=== PATIENT | female | born 1960 | race Caucasian/White ===

== ENCOUNTER 2018-05-21 06:57 | Emergency (ER) | payer OTHER ==
[~2018-05-21] VITALS: Ht 165.1 cm; Wt 94.5 kg
[2018-05-21 07:01] VITALS: BP 203/112
[2018-05-21 07:49] LABS: BASOPHILS % (AUTO) 0.5 % (0-1); EOSINOPHILS # (AUTO) 0.1 X10'3 (0-0.9); EOSINOPHILS % (AUTO) 2.2 % (0-6); HEMATOCRIT 50.9 % (35.0-45.0); HEMOGLOBIN 16.9 g/dl (12.0-16.0); LYMPHOCYTES # (AUTO) 1.3 X10'3 (1.1-4.8); MEAN CORPUSCULAR HEMOGLOBIN 29.1 PG (27.0-31.0); MEAN CORPUSCULAR HGB CONC 33.2 g/dL (33.0-36.5); MEAN CORPUSCULAR VOLUME 87.6 FL (78-98); MEAN PLATELET VOLUME 8.4 FL (7.4-10.4); MONOCYTES # (AUTO) 0.3 X10'3 (0-0.9); MONOCYTES % (AUTO) 7.7 % (2-12); NEUTROPHILS # (AUTO) 2.7 X10'3 (1.8-7.7); NEUTROPHILS % (AUTO) 60.6 % (42-75); PLATELET COUNT 239 X10'3 (140-440); RED BLOOD COUNT 5.82 X10'6 (4.20-5.60); WHITE BLOOD COUNT 4.4 X10'3 (4.5-11.0)
[2018-05-21 08:02] LABS: CLARITY,URINE CLEAR (Clear); COLOR,URINE STRAW (Yellow); GLUCOSE, URINE NEGATIVE (Neg); KETONES,URINE NEGATIVE (Neg); LEUKOCYTE ESTERASE ,URINE NEGATIVE (Neg); NITRITES, URINE NEGATIVE (Neg); OCCULT BLOOD,URINE NEGATIVE (Neg); PH,URINE 7.5 (4.8-8.0); PROTEIN,URINE NEGATIVE (Neg); UROBILINOGEN,URINE 0.2 E.U/dL (0.2-1.0)
[2018-05-21 08:03] LABS: ALANINE AMINOTRANSFERASE 29 U/L (12-78); ALBUMIN 4.1 G/DL (3.4-5.0); ALBUMIN/GLOBULIN RATIO 1.1 (1.1-1.5); ALKALINE PHOSPHATASE 92 IU/L (46-116); ANION GAP 11 (8-16); ASPARTATE AMINO TRANSFERASE 35 U/L (10-37); BILIRUBIN,TOTAL 0.5 MG/DL (0.1-1.0); BLOOD UREA NITROGEN 16 MG/DL (7-18); BUN/CREATININE RATIO 18.8 (6.6-38.0); CALCIUM 9.6 MG/DL (8.5-10.1); CHLORIDE 104 MMOL/L (99-107); CREATININE 0.85 MG/DL (0.40-0.90); GLUCOSE 104 MG/DL (70-104); MAGNESIUM 2.1 MG/DL (1.5-2.4); SODIUM 142 MMOL/L (135-145); TOTAL CARBON DIOXIDE 27.4 MMOL/L (24-32); TOTAL PROTEIN 7.8 G/DL (6.4-8.2); eGFR 69 ML/MIN
[2018-05-21 08:10] LABS: UA COLLECTION TYPE CLN CATCH MIDSTREAM
[2018-05-21 08:13] LABS: URINE AMPHETAMINE SCREEN NEGATIVE (Neg); URINE BARBITUATE SCREEN NEGATIVE (Neg); URINE BENZODIAZEPINES SCREEN NEGATIVE (Neg); URINE CANNABINOID SCREEN NEGATIVE (Neg); URINE COCAINE SCREEN NEGATIVE (Neg); URINE METHADONE SCREEN NEGATIVE (Neg); URINE OPIATE SCREEN NEGATIVE (Neg); URINE PHENCYCLIDINE SCREEN NEGATIVE (Neg)
[2018-05-21 08:31] LABS: PARTIAL THROMBOPLASTIN TIME 27 SECONDS (22-32)
== END 2018-05-21 09:01 | disposition home or self-care (01) ==
LOC: ER 06:58
DX: I10 Essential (primary) hypertension (principal); R06.02 Shortness of breath; R20.2 Paresthesia of skin; R07.9 Chest pain, unspecified; R53.1 Weakness; J44.9 Chronic obstructive pulmonary disease, unspecified; F17.200 Nicotine dependence, unspecified, uncomplicated; Z90.710 Acquired absence of both cervix and uterus; Z98.890 Other specified postprocedural states
CPT/HCPCS: 36415; 71045; 80053; 80305; 81003; 83735; 84484; 85025; 85610; 85730; 93005; 99284

== ENCOUNTER 2021-07-19 10:10 | Inpatient (IN) | payer OTHER ==
[~2021-07-19] VITALS: Ht 165.1 cm; Wt 101.3 kg
[2021-07-19 10:53] LABS: BASOPHILS % (AUTO) 0.2 % (0-1); EOSINOPHILS % (AUTO) 0.3 % (0-6); HEMATOCRIT 46.4 % (35.0-45.0); HEMOGLOBIN 15.4 g/dl (12.0-16.0); LYMPHOCYTES # (AUTO) 0.3 X10'3 (1.1-4.8); LYMPHOCYTES % (AUTO) 3.1 % (21-51); MEAN CORPUSCULAR HGB CONC 33.2 g/dL (33.0-36.5); MEAN CORPUSCULAR VOLUME 87.2 FL (78-98); MEAN PLATELET VOLUME 9.1 FL (7.4-10.4); MONOCYTES # (AUTO) 0.3 X10'3 (0-0.9); MONOCYTES % (AUTO) 3.1 % (2-12); NEUTROPHILS # (AUTO) 8.3 X10'3 (1.8-7.7); NEUTROPHILS % (AUTO) 93.3 % (42-75); PLATELET COUNT 188 X10'3 (140-440); RED BLOOD COUNT 5.32 X10'6 (4.20-5.60); RED CELL DISTRIBUTION WIDTH 14.3 % (11.5-14.5); WHITE BLOOD COUNT 8.9 X10'3 (4.5-11.0)
[2021-07-19] MEDS ORDERED: normal saline 1000ML IV soln IV ONE (10:55)
[2021-07-19 11:10] LABS: ALANINE AMINOTRANSFERASE 15 U/L (12-78); ALBUMIN 2.7 G/DL (3.4-5.0); ALBUMIN/GLOBULIN RATIO 0.6 (1.1-1.5); ALKALINE PHOSPHATASE 101 IU/L (46-116); ANION GAP 13 (8-16); ASPARTATE AMINO TRANSFERASE 19 U/L (10-37); BILIRUBIN,TOTAL 0.5 MG/DL (0.1-1.0); BLOOD UREA NITROGEN 62 MG/DL (7-18); BUN/CREATININE RATIO 22.5 (6.6-38.0); CALCIUM 9.1 MG/DL (8.5-10.1); CHLORIDE 95 MMOL/L (99-107); CREATININE 2.76 MG/DL (0.40-0.90); GLUCOSE 107 MG/DL (70-104); POTASSIUM 4.2 MMOL/L (3.5-5.1); SODIUM 134 MMOL/L (135-145); TOTAL CARBON DIOXIDE 25.7 MMOL/L (24-32); TOTAL PROTEIN 7.2 G/DL (6.4-8.2); eGFR 18 ML/MIN
[2021-07-19] MEDS ORDERED: ipratropium/albuterol 3ml nebule NEB PRN ×2 (11:10→20:30)
[2021-07-19] MEDS ORDERED: levoFLOXACIN-Levaquin 500mg/D5 100 ML IV SCH (11:15)
[2021-07-19 11:16] LABS: D-DIMER 2.41 MG/L FEU (0-0.50)
[2021-07-19 11:20] LABS: MAGNESIUM 1.9 MG/DL (1.5-2.4)
[2021-07-19] MEDS ORDERED: levoFLOXACIN-Levaquin 500mg/D5 100 ML IV ONE (11:37)
[2021-07-19] MEDS ORDERED: vancomycin inj 500 MG in normal saline 100ml IV soln 100 ML IV ONE (12:00)
[2021-07-19 12:01] LABS: PLATELET ESTIMATE NORMAL; TOTAL CELLS COUNTED 100
[2021-07-19] MEDS ORDERED: HYDROcodone/acetaminophen 5mg/325mg tablet PO PRN (12:30)
[2021-07-19] MEDS ORDERED: potassium CL 10mEq/100ml bag 100 ML IV PRN (12:30)
[2021-07-19] MEDS ORDERED: magnesium 2GM in 50ml NS 50 ML IV PRN (12:30)
[2021-07-19] MEDS ORDERED: magnesium 4gm in 100ml NS 100 ML IV PRN (12:30)
[2021-07-19] MEDS ORDERED: acetaminophen 325mg tablet PO PRN (12:30)
[2021-07-19] MEDS ORDERED: magnesium Cl slow-release 64mg tablet PO PRN (12:30)
[2021-07-19] MEDS ORDERED: acetaminophen 650mg rectal suppository RC PRN (12:30)
[2021-07-19] MEDS ORDERED: POTASSIUM BICARB 20meq eff tab 20 MEQ TABLET.EFF PO PRN ×2 (12:30)
[2021-07-19] MEDS ORDERED: ondansetron 4mg rapidly disintigrating tab PO PRN (12:30)
[2021-07-19] MEDS ORDERED: ALBU8.5H17 IH (12:42)
[2021-07-19] MEDS ORDERED: LOSA1TAB36 PO (12:42)
[2021-07-19 12:45] LABS: ABG BASE EXCESS -5.4 mmol/L (-2.0-2.0); ABG HCO3 20.5 mmol/L (22.0-26.0); ABG OXYGEN SATURATION 92.7 % (94-97); ABG PCO2 (T) 42.1 mmHg (32.0-45.0); ABG PO2 (T) 69.5 mmHg (75.0-100.0); ALLEN'S TEST POSITIVE; FCOHb 1.9 % (0.0-3.9); FLOW 4 L/min; FMetHb 0.2 % (0.0-1.5); FO2Hb 90.8 % (94-97); PATIENT TEMPERATURE 37.2; TOTAL HEMOGLOBIN 14.8 G/dl (12.0-16.0)
[2021-07-19] MEDS: normal saline 1000ml 1,000 ML IV SCH (13:07)
[2021-07-19] MEDS: nicotine 14mg patch - 24hr TD SCH (13:25)
[2021-07-19 13:50] LABS: CLARITY,URINE CLOUDY (Clear); COLOR,URINE YELLOW (Yellow); GLUCOSE, URINE NEGATIVE (Neg); KETONES,URINE NEGATIVE (Neg); LEUKOCYTE ESTERASE ,URINE NEGATIVE (Neg); NITRITES, URINE NEGATIVE (Neg); OCCULT BLOOD,URINE TRACE-INTACT (Neg); PROTEIN,URINE 30 mg/dl (Neg); UROBILINOGEN,URINE 0.2 E.U/dL (0.2-1.0)
[2021-07-19] MEDS ORDERED: MULT-1085 PO (13:55)
[2021-07-19 13:57] LABS: UA COLLECTION TYPE NON-SPECIFIED
[2021-07-19 13:58] LABS: SQUAMOUS EPITHELIAL CELL,UR MANY /LPF (FEW)
[2021-07-19 13:59] LABS: RENAL CELLS, URINE FEW /HPF; TRANSITIONAL EPI CELLS,URINE FEW /HPF; WBC,URINE 50-100 /HPF (0-4)
[2021-07-19 14:00] LABS: BACTERIA,URINE 2+ /HPF (Neg); MUCUS STRANDS NONE SEEN /LPF (Neg); RBC,URINE 0-2 /HPF (0-2)
[2021-07-19 14:04] LABS: TOTAL PROTEIN,URINE RANDOM 91.9 MG/DL
[2021-07-19] MEDS: HYDROcodone/acetaminophen 10/325mg tab PO PRN (14:31)
[2021-07-19] MEDS: ondansetron/PF 4mg/2ml inj IV PRN (14:39)
[2021-07-19] MEDS: morphine 2 MG/ML inj. syringe IV PRN ×2 (14:39→21:04)
[2021-07-19 15:15] LABS: UA EOSINOPHILS NO EOS /HPF
[2021-07-19] MEDS: ipratropium/albuterol 3ml nebule NEB SCH ×3 (15:35→22:56)
[2021-07-19] MEDS: docusate sod 100mg capsule PO SCH (20:00)
[2021-07-19] MEDS ORDERED: piperacillin/tazo 4.5gm/100ml 100 ML IV SCH (20:00)
--- NOTE | 2021-07-19 20:23 | NUR ---
Hospitalist paged regarding elevated HR, oxygenation status and low BP. Awaiting response.
--- NOTE | 2021-07-19 20:28 | NUR ---
Hospitalist called ED and gave verbal orders for 40 mg Lasix IV Now and q4hr nebulizer treatments via respiratory.
[2021-07-19] MEDS ORDERED: furosemide 10 MG/1 ML 10ml inj IV ONE (20:30)
--- NOTE | 2021-07-19 20:38 | NUR ---
Paged hospitalist to come look at Pt. Pt exhibiting increased RR, HR, mottling, delayed cap refill, and shallow breathing.
--- NOTE | 2021-07-19 20:43 | NUR ---
Hospitalist called and gave verbal orders for chest xray, ABG, and stated she would be down to see patient soon
--- NOTE | 2021-07-19 20:58 | NUR ---
Hospitalist at bedside
[2021-07-19] MEDS ORDERED: morphine 2 MG/ML inj. syringe IV PRN ×2 (21:00)
[2021-07-19] MEDS ORDERED: temazepam 15mg capsule PO PRN (21:00)
[2021-07-19 21:08] LABS: ABG HCO3 23.7 mmol/L (22.0-26.0); ABG OXYGEN SATURATION 93.5 % (94-97); ABG PCO2 (T) 64.4 mmHg (32.0-45.0); FCOHb 0.9 % (0.0-3.9); FMetHb 0.3 % (0.0-1.5); FO2Hb 92.4 % (94-97); PATIENT TEMPERATURE 39.3; TOTAL HEMOGLOBIN 15.9 G/dl (12.0-16.0)
[2021-07-19] MEDS ORDERED: LIDOcaine 2% 10ml TOPICAL JELLY (Urojet) TP ONE (21:10)
--- NOTE | 2021-07-19 21:11 | NUR ---
ABG results back. Hospitalist notified and ordered Bipap. RT on route.
--- NOTE | 2021-07-19 21:15 | NUR ---
RT at bedside initiating BiPap
--- NOTE | 2021-07-19 21:28 | NUR ---
Pt started on Bipap. Pt resting more comfortably and appears less anxious. HR has decreased to 125
--- NOTE | 2021-07-19 22:31 | NUR ---
Received call from lab regarding positive aerobic blood cultures. Hospitalist paged.
--- NOTE | 2021-07-19 23:51 | NUR ---
Spoke to hospitalist regarding plan of care. Hospitalist plans to admit patient to Tele unit.
[2021-07-19] MEDS: K and/or MAG REPLACEMENT MC SCH (23:55)
[2021-07-20] MEDS: heparin, porcine 5000 units/ml vial SQ SCH ×3 (00:22→20:05)
[2021-07-20 00:41] LABS: ABG BASE EXCESS -4.5 mmol/L (-2.0-2.0); ABG HCO3 22.7 mmol/L (22.0-26.0); ABG OXYGEN SATURATION 96.5 % (94-97); ABG PO2 (T) 98.2 mmHg (75.0-100.0); FCOHb 0.2 % (0.0-3.9); FMetHb 0.4 % (0.0-1.5); FO2Hb 95.9 % (94-97); PATIENT TEMPERATURE 38.1; RESPIRATORY RATE 16 b/min; TOTAL HEMOGLOBIN 15.1 G/dl (12.0-16.0)
[2021-07-20 02:45] LABS: BASOPHILS % (AUTO) 0.1 % (0-1); EOSINOPHILS % (AUTO) 0.2 % (0-6); HEMATOCRIT 43.5 % (35.0-45.0); HEMOGLOBIN 14.5 g/dl (12.0-16.0); LYMPHOCYTES # (AUTO) 0.2 X10'3 (1.1-4.8); LYMPHOCYTES % (AUTO) 2.8 % (21-51); MEAN CORPUSCULAR HEMOGLOBIN 29.2 PG (27.0-31.0); MEAN CORPUSCULAR HGB CONC 33.3 g/dL (33.0-36.5); MEAN CORPUSCULAR VOLUME 87.8 FL (78-98); MEAN PLATELET VOLUME 9.6 FL (7.4-10.4); MONOCYTES # (AUTO) 0.3 X10'3 (0-0.9); MONOCYTES % (AUTO) 5.1 % (2-12); NEUTROPHILS # (AUTO) 6.1 X10'3 (1.8-7.7); NEUTROPHILS % (AUTO) 91.8 % (42-75); PLATELET COUNT 171 X10'3 (140-440); RED BLOOD COUNT 4.95 X10'6 (4.20-5.60); RED CELL DISTRIBUTION WIDTH 14.3 % (11.5-14.5); WHITE BLOOD COUNT 6.7 X10'3 (4.5-11.0)
--- NOTE | 2021-07-20 02:52 | NUR ---
RN brought patient water. Pt is much more alert and organized than prior in the shift. She is able to answer questions and states she feels much less anxious.
[2021-07-20 02:55] LABS: ALANINE AMINOTRANSFERASE 17 U/L (12-78); ALBUMIN 2.2 G/DL (3.4-5.0); ALBUMIN/GLOBULIN RATIO 0.5 (1.1-1.5); ALKALINE PHOSPHATASE 89 IU/L (46-116); ANION GAP 12 (8-16); ASPARTATE AMINO TRANSFERASE 19 U/L (10-37); BILIRUBIN,TOTAL 0.7 MG/DL (0.1-1.0); BLOOD UREA NITROGEN 62 MG/DL (7-18); BUN/CREATININE RATIO 29.5 (6.6-38.0); CALCIUM 8.2 MG/DL (8.5-10.1); CHLORIDE 102 MMOL/L (99-107); CHOL/HDL RATIO 12.7 (0.00-4.99); CHOLESTEROL 127 MG/DL (0-200); GLUCOSE 107 MG/DL (70-104); HDL CHOLESTEROL 10 MG/DL (35-60); LDL CHOLESTEROL 38 MG/DL (50-100); MAGNESIUM 1.9 MG/DL (1.5-2.4); POTASSIUM 3.8 MMOL/L (3.5-5.1); SODIUM 138 MMOL/L (135-145); TOTAL CARBON DIOXIDE 23.6 MMOL/L (24-32); TOTAL PROTEIN 6.6 G/DL (6.4-8.2); TRIGLYCERIDES 198 MG/DL (20-135); eGFR 24 ML/MIN
[2021-07-20] MEDS: normal saline 1000ml 1,000 ML IV SCH ×4 (03:05→23:50)
--- NOTE | 2021-07-20 03:53 | NUR ---
Lab called to give critical value regarding pt blood cultures. Organism results are the same as previous blood cultures. MD was already notified of previous culture results.
[2021-07-20] MEDS: ondansetron/PF 4mg/2ml inj IV PRN (05:43)
[2021-07-20] MEDS: morphine 2 MG/ML inj. syringe IV PRN (05:44)
[2021-07-20 06:05] LABS: PLATELET ESTIMATE NORMAL; TOTAL CELLS COUNTED 100
[2021-07-20] MEDS: ipratropium/albuterol 3ml nebule NEB SCH ×5 (06:50→23:26)
[2021-07-20 08:00] VITALS: BP 102/68
[2021-07-20] MEDS ORDERED: azithromycin/NS 500mg/250ml 250 ML IV SCH (08:00)
[2021-07-20] MEDS ORDERED: cefTRIAXone 1g/NS 100ml IVPB 100 ML IV SCH (08:00)
[2021-07-20] MEDS: K and/or MAG REPLACEMENT MC SCH ×2 (08:00→20:00)
[2021-07-20] MEDS ORDERED: methylPREDNISolone sod succ 125mg/2ml vial IV ONE (09:40)
[2021-07-20] MEDS: docusate sod 100mg capsule PO SCH ×2 (09:41→20:00)
[2021-07-20] MEDS: multivitamins, therapeutics tablet PO SCH (09:41)
[2021-07-20] MEDS: nicotine 14mg patch - 24hr TD SCH (09:42)
[2021-07-20 11:00] VITALS: BP 100/63
[2021-07-20] MEDS: pantoprazole 40mg Tablet.DR PO SCH (13:11)
[2021-07-20] MEDS: methylPREDNISolone sod succ 125mg/2ml vial IV SCH ×2 (13:11→20:05)
[2021-07-20 14:09] LABS: HIV ANTIBODY 1&2 RAPID NON-REACTIVE (Neg)
[2021-07-20 15:00] VITALS: BP 99/64
--- NOTE | 2021-07-20 16:35 | NUR ---
PAGER ID: [phone] MESSAGE: Sumanth is lethargic. She is not very responsive her last ABG (pH 7.2363, CO2 52.4 SPO2 89) was at midnight do you want another? Still on Bipap. Her procalcitonin came back 35.98 Please advise. Lexi BRENNAN ext [phone]
[2021-07-20 16:54] LABS: ABG HCO3 24.5 mmol/L (22.0-26.0); ABG OXYGEN SATURATION 93.5 % (94-97); ABG PCO2 (T) 58.8 mmHg (32.0-45.0); ABG PO2 (T) 76.2 mmHg (75.0-100.0); ALLEN'S TEST POSITIVE; FCOHb 0.1 % (0.0-3.9); FMetHb 0.4 % (0.0-1.5); RESPIRATORY RATE 12 b/min; TOTAL HEMOGLOBIN 14.8 G/dl (12.0-16.0)
--- NOTE | 2021-07-20 17:01 | NUR ---
PAGER ID: [phone] MESSAGE: [id number] Amish Riddle blood gas pH 7.237, CO2 58.8, PO2 76.2. Please advise Lexi BRENNAN ext [phone] Thank you
--- NOTE | 2021-07-20 18:20 | NUR ---
Problems reprioritized. Patient report given, questions answered & plan of care reviewed with ANU Quintanilla.
[2021-07-20] MEDS: acetaminophen 325mg tablet PO PRN (20:05)
[2021-07-20 22:00] VITALS: BP 93/65
[2021-07-21] MEDS: methylPREDNISolone sod succ 125mg/2ml vial IV SCH ×4 (01:39→19:39)
[2021-07-21 02:00] VITALS: BP 114/78
[2021-07-21 06:00] VITALS: BP 112/72
[2021-07-21 07:00] LABS: BASOPHILS % (AUTO) 0.1 % (0-1); EOSINOPHILS % (AUTO) 0.1 % (0-6); HEMATOCRIT 42.7 % (35.0-45.0); LYMPHOCYTES # (AUTO) 0.4 X10'3 (1.1-4.8); LYMPHOCYTES % (AUTO) 5.2 % (21-51); MEAN CORPUSCULAR HEMOGLOBIN 28.7 PG (27.0-31.0); MEAN CORPUSCULAR HGB CONC 32.9 g/dL (33.0-36.5); MEAN CORPUSCULAR VOLUME 87.3 FL (78-98); MEAN PLATELET VOLUME 9.1 FL (7.4-10.4); MONOCYTES # (AUTO) 0.6 X10'3 (0-0.9); MONOCYTES % (AUTO) 7.8 % (2-12); NEUTROPHILS # (AUTO) 6.4 X10'3 (1.8-7.7); NEUTROPHILS % (AUTO) 86.8 % (42-75); PLATELET COUNT 190 X10'3 (140-440); RED CELL DISTRIBUTION WIDTH 14.4 % (11.5-14.5); WHITE BLOOD COUNT 7.4 X10'3 (4.5-11.0)
[2021-07-21 07:09] LABS: ALANINE AMINOTRANSFERASE 17 U/L (12-78); ALBUMIN/GLOBULIN RATIO 0.4 (1.1-1.5); ALKALINE PHOSPHATASE 88 IU/L (46-116); ANION GAP 8 (8-16); ASPARTATE AMINO TRANSFERASE 16 U/L (10-37); BILIRUBIN,TOTAL 0.3 MG/DL (0.1-1.0); BLOOD UREA NITROGEN 51 MG/DL (7-18); BUN/CREATININE RATIO 38.1 (6.6-38.0); CALCIUM 9.1 MG/DL (8.5-10.1); CHLORIDE 104 MMOL/L (99-107); CREATININE 1.34 MG/DL (0.40-0.90); GLUCOSE 152 MG/DL (70-104); MAGNESIUM 2.5 MG/DL (1.5-2.4); POTASSIUM 3.7 MMOL/L (3.5-5.1); SODIUM 139 MMOL/L (135-145); TOTAL CARBON DIOXIDE 27.4 MMOL/L (24-32); TOTAL PROTEIN 6.7 G/DL (6.4-8.2); eGFR 40 ML/MIN
[2021-07-21 07:29] LABS: PLATELET ESTIMATE NORMAL; TOTAL CELLS COUNTED 100
[2021-07-21] MEDS: ipratropium/albuterol 3ml nebule NEB SCH ×5 (07:39→23:28)
[2021-07-21] MEDS: acetaminophen 325mg tablet PO PRN (07:57)
[2021-07-21] MEDS: CefTRIAXone 2gm/NS 100ml IVPB 100 ML IV SCH (07:58)
[2021-07-21] MEDS: K and/or MAG REPLACEMENT MC SCH ×2 (08:00→19:40)
[2021-07-21] MEDS: docusate sod 100mg capsule PO SCH ×2 (08:56→19:39)
[2021-07-21] MEDS: pantoprazole 40mg Tablet.DR PO SCH (08:56)
[2021-07-21] MEDS: multivitamins, therapeutics tablet PO SCH (08:57)
[2021-07-21] MEDS: heparin, porcine 5000 units/ml vial SQ SCH (08:57)
[2021-07-21] MEDS: nicotine 14mg patch - 24hr TD SCH (08:58)
[2021-07-21] MEDS ORDERED: PERFLUTREN PROTEIN-A MICROSPHR (Optison) 0.22 MG/ML 3ML VIAL IV ONE (09:10)
--- NOTE | 2021-07-21 09:48 | NUR ---
PAGER ID: [phone] MESSAGE: [id number] Venkatesh, Amish is having chest pain. did an ekg. the telephoto installer said she went into a fib. she reported chest pain 5/10. Is currently getting a echo too. Please advise Lexi BRENNAN [phone]
--- NOTE | 2021-07-21 09:57 | NUR ---
Patient reported chest pain 07/25. laboratory tech reported patient went into a fib at 0907. Per protocol ordered an ekg and paged hospitalist and took ekg to ED to have read in a time frame given by protocol. Dr. Gabriel refused to read ekg. He stated, "You did not follow protocol!" Awaiting Dr. Izquierdo's response at this time.
--- NOTE | 2021-07-21 10:31 | NUR ---
PAGER ID: [phone] MESSAGE: [id number] Amish Petersonx reported chest pain at 0930, telecommunication systems designer reported a fib at 0907, ordered a 12 lead, ED wouldn't read it, so I paged you, Current VS 128/84 (95), SpO2 91% on 6L NC R22 Pain 06/25. Keeping you updated. Thanks Lexi BRENNAN [phone]
[2021-07-21] MEDS: ibuprofen tablet 400 MG TABLET PO PRN (10:44)
[2021-07-21 11:00] VITALS: BP 114/73
[2021-07-21] MEDS: normal saline 1000ml 1,000 ML IV SCH ×2 (11:25→22:04)
[2021-07-21] MEDS ORDERED: diltiazem 5mg/ml 5ml inj. IV ONE (12:30)
[2021-07-21] MEDS: diltiazem-D5W 125mg/125ml 125 ML IV SCH (14:27)
[2021-07-21 15:00] VITALS: BP 107/73
[2021-07-21] MEDS: HYDROcodone/acetaminophen 10/325mg tab PO PRN (17:57)
[2021-07-21 18:00] VITALS: BP 93/59
[2021-07-21] MEDS: apixaban 5mg tablet PO SCH (19:39)
[2021-07-21 22:00] VITALS: BP 112/59
[2021-07-22] MEDS: methylPREDNISolone sod succ 125mg/2ml vial IV SCH ×3 (02:00→14:00)
[2021-07-22] MEDS: ibuprofen tablet 400 MG TABLET PO PRN (02:00)
[2021-07-22 06:00] VITALS: BP 115/83
[2021-07-22 06:54] LABS: BASOPHILS % (AUTO) 0.1 % (0-1); EOSINOPHILS % (AUTO) 0 % (0-6); HEMATOCRIT 44.5 % (35.0-45.0); HEMOGLOBIN 14.8 g/dl (12.0-16.0); LYMPHOCYTES # (AUTO) 0.4 X10'3 (1.1-4.8); LYMPHOCYTES % (AUTO) 5.6 % (21-51); MEAN CORPUSCULAR HEMOGLOBIN 29.5 PG (27.0-31.0); MEAN CORPUSCULAR HGB CONC 33.3 g/dL (33.0-36.5); MEAN CORPUSCULAR VOLUME 88.8 FL (78-98); MEAN PLATELET VOLUME 9.1 FL (7.4-10.4); MONOCYTES % (AUTO) 13.3 % (2-12); NEUTROPHILS # (AUTO) 6.3 X10'3 (1.8-7.7); PLATELET COUNT 179 X10'3 (140-440); RED BLOOD COUNT 5.02 X10'6 (4.20-5.60); WHITE BLOOD COUNT 7.8 X10'3 (4.5-11.0)
[2021-07-22 07:23] LABS: ALANINE AMINOTRANSFERASE 21 U/L (12-78); ALBUMIN 1.9 G/DL (3.4-5.0); ALBUMIN/GLOBULIN RATIO 0.4 (1.1-1.5); ALKALINE PHOSPHATASE 96 IU/L (46-116); ANION GAP 9 (8-16); ASPARTATE AMINO TRANSFERASE 16 U/L (10-37); BILIRUBIN,TOTAL 0.2 MG/DL (0.1-1.0); BLOOD UREA NITROGEN 45 MG/DL (7-18); BUN/CREATININE RATIO 43.7 (6.6-38.0); CALCIUM 9.6 MG/DL (8.5-10.1); CHLORIDE 106 MMOL/L (99-107); CREATININE 1.03 MG/DL (0.40-0.90); GLUCOSE 144 MG/DL (70-104); MAGNESIUM 2.2 MG/DL (1.5-2.4); POTASSIUM 4.3 MMOL/L (3.5-5.1); SODIUM 142 MMOL/L (135-145); TOTAL CARBON DIOXIDE 27.5 MMOL/L (24-32); TOTAL PROTEIN 6.7 G/DL (6.4-8.2); eGFR 55 ML/MIN
[2021-07-22 07:32] LABS: PLATELET ESTIMATE NORMAL; TOTAL CELLS COUNTED 100
[2021-07-22] MEDS: K and/or MAG REPLACEMENT MC SCH ×2 (08:00→20:00)
[2021-07-22] MEDS: ipratropium/albuterol 3ml nebule NEB SCH ×5 (08:06→23:35)
[2021-07-22] MEDS: nicotine 14mg patch - 24hr TD SCH (08:57)
[2021-07-22] MEDS: pantoprazole 40mg Tablet.DR PO SCH (08:57)
[2021-07-22] MEDS: CefTRIAXone 2gm/NS 100ml IVPB 100 ML IV SCH (08:57)
[2021-07-22] MEDS: multivitamins, therapeutics tablet PO SCH (08:57)
[2021-07-22] MEDS: docusate sod 100mg capsule PO SCH ×2 (08:57→20:00)
[2021-07-22] MEDS: HYDROcodone/acetaminophen 10/325mg tab PO PRN ×2 (08:57→22:46)
[2021-07-22] MEDS: apixaban 5mg tablet PO SCH (08:59)
[2021-07-22] MEDS: normal saline 1000ml 1,000 ML IV SCH ×2 (09:11→20:18)
[2021-07-22 11:00] VITALS: BP 125/93
[2021-07-22] MEDS ORDERED: magnesium hydroxide 30ml (MOM) UD suspension PO PRN (12:40)
[2021-07-22] MEDS: diltiazem-D5W 125mg/125ml 125 ML IV SCH (14:10)
[2021-07-22] MEDS: heparin, porcine 5000 units/ml vial SQ SCH (16:00)
[2021-07-22 18:00] VITALS: BP_SYST 113; BP_SYST 128; BP_DIAS 62; BP_DIAS 76
[2021-07-22] MEDS: diltiazem 30mg tablet PO SCH (19:59)
[2021-07-22 22:00] VITALS: BP 128/75
[2021-07-22] MEDS: psyllium seed 3.4 gm packet PO SCH (22:46)
--- NOTE | 2021-07-22 23:51 | NUR ---
Pt in RM 3028, Venkatesh Tammy K is scheduled for PO Cardizem Q6hrs. Pt still has active cardizem drip in the MAR. Would you want to D/C cardizem drip? Please advice. Thanks, Sharon/[phone] Head
--- NOTE | 2021-07-22 23:55 | NUR ---
New verbal order to D/C cardizem drip by Dr Garcia. Continue PO Cardizem per order. Dr Garcia was present on unit at this time.
[2021-07-23] MEDS: heparin, porcine 5000 units/ml vial SQ SCH ×3 (00:37→16:00)
[2021-07-23] MEDS: methylPREDNISolone sod succ 125mg/2ml vial IV SCH ×3 (00:38→16:00)
[2021-07-23 02:35] VITALS: BP 128/65
[2021-07-23] MEDS: diltiazem 30mg tablet PO SCH ×4 (02:37→19:57)
[2021-07-23 06:00] VITALS: BP 121/81
[2021-07-23 06:49] LABS: BASOPHILS % (AUTO) 0.1 % (0-1); EOSINOPHILS % (AUTO) 0.1 % (0-6); HEMATOCRIT 47.9 % (35.0-45.0); HEMOGLOBIN 15.8 g/dl (12.0-16.0); LYMPHOCYTES # (AUTO) 0.5 X10'3 (1.1-4.8); LYMPHOCYTES % (AUTO) 6.3 % (21-51); MEAN PLATELET VOLUME 8.5 FL (7.4-10.4); MONOCYTES # (AUTO) 0.8 X10'3 (0-0.9); MONOCYTES % (AUTO) 10.2 % (2-12); NEUTROPHILS # (AUTO) 6.3 X10'3 (1.8-7.7); NEUTROPHILS % (AUTO) 83.3 % (42-75); PLATELET COUNT 214 X10'3 (140-440); RED BLOOD COUNT 5.44 X10'6 (4.20-5.60); RED CELL DISTRIBUTION WIDTH 15.3 % (11.5-14.5); WHITE BLOOD COUNT 7.6 X10'3 (4.5-11.0)
--- NOTE | 2021-07-23 06:53 | NUR ---
Problems reprioritized. Patient report given, questions answered & plan of care reviewed with .
[2021-07-23 07:06] LABS: ALANINE AMINOTRANSFERASE 25 U/L (12-78); ALBUMIN 2.2 G/DL (3.4-5.0); ALBUMIN/GLOBULIN RATIO 0.4 (1.1-1.5); ALKALINE PHOSPHATASE 106 IU/L (46-116); ANION GAP 9 (8-16); ASPARTATE AMINO TRANSFERASE 16 U/L (10-37); BILIRUBIN,TOTAL 0.4 MG/DL (0.1-1.0); BLOOD UREA NITROGEN 37 MG/DL (7-18); BUN/CREATININE RATIO 45.1 (6.6-38.0); CALCIUM 9.9 MG/DL (8.5-10.1); CHLORIDE 107 MMOL/L (99-107); CREATININE 0.82 MG/DL (0.40-0.90); GLUCOSE 133 MG/DL (70-104); MAGNESIUM 2.2 MG/DL (1.5-2.4); POTASSIUM 4.8 MMOL/L (3.5-5.1); SODIUM 143 MMOL/L (135-145); TOTAL CARBON DIOXIDE 27.5 MMOL/L (24-32); TOTAL PROTEIN 7.4 G/DL (6.4-8.2); eGFR 71 ML/MIN
[2021-07-23 07:34] LABS: PLATELET ESTIMATE NORMAL; TOTAL CELLS COUNTED 100
[2021-07-23] MEDS: ipratropium/albuterol 3ml nebule NEB SCH ×5 (08:11→23:08)
[2021-07-23] MEDS: K and/or MAG REPLACEMENT MC SCH ×2 (08:21→20:00)
[2021-07-23] MEDS: normal saline 1000ml 1,000 ML IV SCH ×2 (09:10→18:32)
[2021-07-23] MEDS: HYDROcodone/acetaminophen 10/325mg tab PO PRN ×2 (09:19→14:06)
[2021-07-23] MEDS: nicotine 14mg patch - 24hr TD SCH (09:19)
[2021-07-23] MEDS: multivitamins, therapeutics tablet PO SCH (09:20)
[2021-07-23] MEDS: pantoprazole 40mg Tablet.DR PO SCH (09:20)
[2021-07-23] MEDS: docusate sod 100mg capsule PO SCH ×2 (09:26→19:59)
[2021-07-23] MEDS: CefTRIAXone 2gm/NS 100ml IVPB 100 ML IV SCH (09:26)
--- NOTE | 2021-07-23 10:16 | NUR ---
Initial: Pt admitted w/ Afib w/ RVR, sepsis, and PNA per EMR, on 7L HFNC. Currently on Heart healthy diet w/ avg intake 57% of meals partially meeting needs. Pt could benefit from Ensure High Protein TID to help meet nutrient needs. LBM 5/4 receiving routine bowel care. Will continue to monitor and make recommendations as appropriate. Recs: 1. Liberalize to Regular diet 2. Ensure High Protein TID; pending MD verification 3. Bowel care per rx 4. Scaled wts this admit Addendum: 07/23/21 at [address] Amended: Links added.
[2021-07-23] MEDS ORDERED: iohexol 350MG/ML 100ml bottle IV ONE (10:56)
[2021-07-23 11:00] VITALS: BP 123/93
[2021-07-23] MEDS: lactose-reduced food (Ensure High Protein) 237ml bottle PO SCH ×2 (13:02→13:59)
[2021-07-23 15:00] VITALS: BP 142/84
[2021-07-23 18:00] VITALS: BP 131/77
--- NOTE | 2021-07-23 18:52 | NUR ---
Pt in RM 3028/A, Venkatesh Munoz is asking for something for heart burn. Stated she takes Pepcid at home and it helps. Kindly advice, ric. Sharon/[phone]. Paged Dr Garcia.
[2021-07-23] MEDS ORDERED: famotidine 10mg tablet PO PRN (19:00)
[2021-07-23] MEDS: famotidine 20mg tablet PO PRN (21:22)
[2021-07-23] MEDS: psyllium seed 3.4 gm packet PO SCH (21:22)
[2021-07-24] MEDS: methylPREDNISolone sod succ 125mg/2ml vial IV SCH ×4 (01:03→23:50)
[2021-07-24] MEDS: heparin, porcine 5000 units/ml vial SQ SCH ×4 (01:04→23:49)
[2021-07-24 02:08] VITALS: BP 131/92
[2021-07-24] MEDS: diltiazem 30mg tablet PO SCH ×4 (02:11→20:57)
[2021-07-24] MEDS: acetaminophen 325mg tablet PO PRN ×2 (02:11→10:33)
[2021-07-24 05:50] LABS: HEMOGLOBIN 15.3 g/dl (12.0-16.0)
[2021-07-24 05:52] LABS: HEMATOCRIT 46.4 % (35.0-45.0); MEAN CORPUSCULAR HEMOGLOBIN 28.6 PG (27.0-31.0); MEAN CORPUSCULAR HGB CONC 32.9 g/dL (33.0-36.5); MEAN CORPUSCULAR VOLUME 86.7 FL (78-98); MEAN PLATELET VOLUME 8.5 FL (7.4-10.4); PLATELET COUNT 258 X10'3 (140-440); RED BLOOD COUNT 5.36 X10'6 (4.20-5.60); RED CELL DISTRIBUTION WIDTH 15.1 % (11.5-14.5); WHITE BLOOD COUNT 15.3 X10'3 (4.5-11.0)
[2021-07-24 06:00] VITALS: BP 125/75
[2021-07-24] MEDS: normal saline 1000ml 1,000 ML IV SCH (06:02)
[2021-07-24 06:22] LABS: ALANINE AMINOTRANSFERASE 30 U/L (12-78); ALBUMIN 2.2 G/DL (3.4-5.0); ALBUMIN/GLOBULIN RATIO 0.5 (1.1-1.5); ALKALINE PHOSPHATASE 100 IU/L (46-116); ANION GAP 5 (8-16); ASPARTATE AMINO TRANSFERASE 19 U/L (10-37); BILIRUBIN,TOTAL 0.3 MG/DL (0.1-1.0); BLOOD UREA NITROGEN 35 MG/DL (7-18); BUN/CREATININE RATIO 49.3 (6.6-38.0); CALCIUM 9.3 MG/DL (8.5-10.1); CHLORIDE 108 MMOL/L (99-107); CREATININE 0.71 MG/DL (0.40-0.90); GLUCOSE 155 MG/DL (70-104); SODIUM 141 MMOL/L (135-145); TOTAL CARBON DIOXIDE 27.9 MMOL/L (24-32); TOTAL PROTEIN 6.9 G/DL (6.4-8.2); eGFR 84 ML/MIN
[2021-07-24 06:28] LABS: POTASSIUM 4.6 MMOL/L (3.5-5.1)
--- NOTE | 2021-07-24 06:41 | NUR ---
Problems reprioritized. Patient report given, Kim BRENNAN questions answered & plan of care reviewed with .
--- NOTE | 2021-07-24 07:00 | NUR ---
Patient in room PCU 3028. I have received report from ANU Herrera and had the opportunity to ask questions and assume patient care.
[2021-07-24] MEDS: multivitamins, therapeutics tablet PO SCH (07:35)
[2021-07-24] MEDS: nicotine 14mg patch - 24hr TD SCH (07:35)
[2021-07-24] MEDS: docusate sod 100mg capsule PO SCH ×2 (07:35→20:57)
[2021-07-24] MEDS: ipratropium/albuterol 3ml nebule NEB SCH ×5 (07:36→22:56)
[2021-07-24] MEDS: pantoprazole 40mg Tablet.DR PO SCH (07:36)
[2021-07-24 07:38] LABS: TOTAL CELLS COUNTED 100
[2021-07-24 07:39] LABS: PLATELET ESTIMATE NORMAL
[2021-07-24] MEDS: CefTRIAXone 2gm/NS 100ml IVPB 100 ML IV SCH (07:55)
[2021-07-24 07:58] LABS: ALLEN'S TEST POSITIVE
[2021-07-24] MEDS: K and/or MAG REPLACEMENT MC SCH ×2 (08:00→20:00)
--- NOTE | 2021-07-24 08:00 | NUR ---
AGREE WITH CIGARETTE INSPECTOR AM ASSESSMENT.
[2021-07-24] MEDS: lactose-reduced food (Ensure High Protein) 237ml bottle PO SCH ×3 (08:37→18:00)
[2021-07-24 11:00] VITALS: BP 129/82
[2021-07-24] MEDS: HYDROcodone/acetaminophen 10/325mg tab PO PRN (14:34)
[2021-07-24 15:00] VITALS: BP 136/87
--- NOTE | 2021-07-24 15:56 | NUR ---
Pt had chest pressure, MD aware. Pt had relief from breathing treatment and PO Narco
--- NOTE | 2021-07-24 18:09 | NUR ---
Problems reprioritized. Patient report given, questions answered & plan of care reviewed with ANU Herrera.
[2021-07-24 19:38] VITALS: BP 160/94
[2021-07-24] MEDS: famotidine 20mg tablet PO PRN (19:48)
--- NOTE | 2021-07-24 20:53 | NUR ---
2030: Pt c/o of having heart burn or chest pain. Unable to differentiate between two. EKG completed per protocol. Dr Sanchez paged to read. Will continue to monitor pt.
[2021-07-24] MEDS: psyllium seed 3.4 gm packet PO SCH (21:35)
--- NOTE | 2021-07-24 22:26 | NUR ---
Paged Dr Sanchez a second time to read EKG result. This nurse continue to monitor pt.
[2021-07-25] VITALS (9 sets, daily range): BP systolic 120–179; BP diastolic 63–106
--- NOTE | 2021-07-25 01:39 | NUR ---
Pt Venkateshlui Munoz is very anxious, would you want to put in an order for her. She is still complaining of chest pain and too off the CPAP. Please advice Thanks Sharon/[id number] Sanchez Addendum: 07/25/21 at 0155 by Sharon Childs I meant to say pt took off her CPAP.
[2021-07-25] MEDS: diltiazem 30mg tablet PO SCH ×4 (02:00→19:58)
[2021-07-25] MEDS: morphine 2 MG/ML inj. syringe IV PRN (02:01)
[2021-07-25] MEDS: ipratropium/albuterol 3ml nebule NEB PRN (02:17)
--- NOTE | 2021-07-25 06:20 | NUR ---
Patient in room PCU 3028. I have received report from ANU Herrera and had the opportunity to ask questions and assume patient care.
--- NOTE | 2021-07-25 06:21 | NUR ---
Problems reprioritized. Patient report given,Kim BRENNAN, questions answered & plan of care reviewed with .
--- NOTE | 2021-07-25 06:43 | NUR ---
PAGER ID: [phone] MESSAGE: Tammy [id number]- Pt had EKG done last night, results were abnormal. EKG in chart. Also patients o2 sat is sitting at 88 on 11L of oxygen. Please advise. Thanks Paged Dr. Izquierdo regarding EKG from last night and o2 saturation.
[2021-07-25] MEDS: ipratropium/albuterol 3ml nebule NEB SCH ×5 (07:08→23:12)
[2021-07-25] MEDS: CefTRIAXone 2gm/NS 100ml IVPB 100 ML IV SCH (07:56)
[2021-07-25] MEDS: K and/or MAG REPLACEMENT MC SCH ×2 (08:00→20:00)
[2021-07-25] MEDS: lactose-reduced food (Ensure High Protein) 237ml bottle PO SCH ×3 (08:00→18:00)
[2021-07-25] MEDS: docusate sod 100mg capsule PO SCH ×2 (08:08→19:58)
[2021-07-25] MEDS: pantoprazole 40mg Tablet.DR PO SCH (08:09)
[2021-07-25] MEDS: multivitamins, therapeutics tablet PO SCH (08:09)
[2021-07-25] MEDS: nicotine 14mg patch - 24hr TD SCH (08:09)
[2021-07-25] MEDS: heparin, porcine 5000 units/ml vial SQ SCH ×3 (08:10→23:25)
[2021-07-25] MEDS: methylPREDNISolone sod succ 125mg/2ml vial IV SCH ×3 (08:12→23:25)
[2021-07-25] MEDS ORDERED: LIDOcaine 1%/PF 5ML 10 MG/ML VIAL ONE (09:40)
[2021-07-25 09:55] LABS: BASOPHILS % (AUTO) 0.1 % (0-1); EOSINOPHILS % (AUTO) 0.1 % (0-6); HEMATOCRIT 53.1 % (35.0-45.0); HEMOGLOBIN 17.5 g/dl (12.0-16.0); LYMPHOCYTES # (AUTO) 0.8 X10'3 (1.1-4.8); MEAN CORPUSCULAR HGB CONC 32.9 g/dL (33.0-36.5); MEAN CORPUSCULAR VOLUME 88.1 FL (78-98); MEAN PLATELET VOLUME 7.8 FL (7.4-10.4); MONOCYTES # (AUTO) 0.5 X10'3 (0-0.9); MONOCYTES % (AUTO) 3.6 % (2-12); NEUTROPHILS # (AUTO) 11.7 X10'3 (1.8-7.7); NEUTROPHILS % (AUTO) 90.2 % (42-75); PLATELET COUNT 360 X10'3 (140-440); RED BLOOD COUNT 6.03 X10'6 (4.20-5.60); RED CELL DISTRIBUTION WIDTH 15.4 % (11.5-14.5)
[2021-07-25 10:15] LABS: ALANINE AMINOTRANSFERASE 40 U/L (12-78); ALBUMIN 2.6 G/DL (3.4-5.0); ALBUMIN/GLOBULIN RATIO 0.5 (1.1-1.5); ALKALINE PHOSPHATASE 109 IU/L (46-116); ANION GAP 5 (8-16); ASPARTATE AMINO TRANSFERASE 19 U/L (10-37); BILIRUBIN,TOTAL 0.4 MG/DL (0.1-1.0); BLOOD UREA NITROGEN 31 MG/DL (7-18); BUN/CREATININE RATIO 42.5 (6.6-38.0); CALCIUM 9.3 MG/DL (8.5-10.1); CHLORIDE 104 MMOL/L (99-107); CREATININE 0.73 MG/DL (0.40-0.90); GLUCOSE 177 MG/DL (70-104); POTASSIUM 4.4 MMOL/L (3.5-5.1); SODIUM 139 MMOL/L (135-145); TOTAL CARBON DIOXIDE 30.4 MMOL/L (24-32); TOTAL PROTEIN 7.7 G/DL (6.4-8.2); eGFR 81 ML/MIN
--- NOTE | 2021-07-25 10:48 | NUR ---
PAGER ID: [phone] MESSAGE: [id number]-VenkateshDiane poe found a copy of EKG from last night 07/24/21, it is in patients chart. Thanks Page Dr. Izquierdo regarding 07/24/21 EKG
[2021-07-25 11:25] LABS: GLUCOSE,BODY FLUID 85 MG/DL; LDH,BODY FLUID 3642 U/L; TOTAL PROTEIN,BODY FLUID 2.6 G/DL
[2021-07-25 11:27] LABS: BFAPPEAR CLOUDY; BFCOLOR YELLOW; BFVOLUME 63 ML
[2021-07-25 11:28] LABS: BF WBC COUNT 4600 /CU MM (0-1000)
[2021-07-25 11:29] LABS: BF MESOTHELIAL CELLS FEW; BF RBC COUNT 1750 /CU MM; LYMPHOCYTES,BODY FLUID 6 %; MONOCYTES,BODY FLUID 4 %; NEUTROPHILS,BODY FLUID 90 %
[2021-07-25 11:32] LABS: PLEURAL FLUID PH 7.286 (7.63-7.65)
[2021-07-25 11:34] LABS: BFSOURCE RIGHT PLEURAL FLD
--- NOTE | 2021-07-25 18:36 | NUR ---
Problems reprioritized. Patient report given, questions answered & plan of care reviewed with ANU Kaur.
[2021-07-25] MEDS: psyllium seed 3.4 gm packet PO SCH (20:00)
[2021-07-25] MEDS: HYDROcodone/acetaminophen 10/325mg tab PO PRN (20:08)
[2021-07-25] MEDS: famotidine 20mg tablet PO PRN (23:31)
[2021-07-26] VITALS (8 sets, daily range): BP systolic 92–139; BP diastolic 63–91
[2021-07-26] MEDS: diltiazem 30mg tablet PO SCH ×4 (01:19→20:52)
[2021-07-26] MEDS: ipratropium/albuterol 3ml nebule NEB PRN (05:17)
--- NOTE | 2021-07-26 05:27 | NUR ---
chest tube dressing clean dry and intact. output minimal, marked at 730ml on container. Pt continues to endorse pain to right rib, prn pain medication was administered. Pt remains on high flow with saturations in the low 90s.
--- NOTE | 2021-07-26 06:32 | NUR ---
Patient in room PCU 3028. I have received report from ANU Kaur and had the opportunity to ask questions and assume patient care.
[2021-07-26] MEDS: ipratropium/albuterol 3ml nebule NEB SCH ×5 (07:13→23:15)
[2021-07-26] MEDS: K and/or MAG REPLACEMENT MC SCH ×2 (08:00→20:00)
[2021-07-26] MEDS: lactose-reduced food (Ensure High Protein) 237ml bottle PO SCH ×3 (08:00→18:00)
[2021-07-26] MEDS: multivitamins, therapeutics tablet PO SCH (08:30)
[2021-07-26] MEDS: pantoprazole 40mg Tablet.DR PO SCH (08:32)
[2021-07-26] MEDS: docusate sod 100mg capsule PO SCH ×2 (08:32→20:52)
[2021-07-26] MEDS: heparin, porcine 5000 units/ml vial SQ SCH ×3 (08:33→23:18)
[2021-07-26] MEDS: nicotine 14mg patch - 24hr TD SCH (08:33)
[2021-07-26] MEDS: methylPREDNISolone sod succ 125mg/2ml vial IV SCH (09:08)
[2021-07-26] MEDS: CefTRIAXone 2gm/NS 100ml IVPB 100 ML IV SCH (09:09)
[2021-07-26] MEDS: HYDROcodone/acetaminophen 10/325mg tab PO PRN ×3 (09:16→20:52)
--- NOTE | 2021-07-26 09:38 | NUR ---
PAGER ID: [phone] MESSAGE: [id number] Tammy Riddle- Trending up to 130s-150s sustained heart rate, BP is 131/63, R/R 23 and o2 saturation is at 88% at 15L. Thank you Paged Dr. Izquierdo regarding Trending HR in 130s-150s
[2021-07-26] MEDS ORDERED: diltiazem 5mg/ml 5ml inj. IV ONE (09:40)
[2021-07-26 10:13] LABS: BASOPHILS % (AUTO) 0.1 % (0-1); EOSINOPHILS # (AUTO) 0.1 X10'3 (0-0.9); EOSINOPHILS % (AUTO) 0.7 % (0-6); HEMATOCRIT 48.6 % (35.0-45.0); HEMOGLOBIN 16.3 g/dl (12.0-16.0); LYMPHOCYTES # (AUTO) 0.5 X10'3 (1.1-4.8); LYMPHOCYTES % (AUTO) 4.4 % (21-51); MEAN CORPUSCULAR HEMOGLOBIN 29.1 PG (27.0-31.0); MEAN CORPUSCULAR HGB CONC 33.5 g/dL (33.0-36.5); MEAN PLATELET VOLUME 7.9 FL (7.4-10.4); MONOCYTES # (AUTO) 0.2 X10'3 (0-0.9); MONOCYTES % (AUTO) 2.3 % (2-12); NEUTROPHILS # (AUTO) 9.9 X10'3 (1.8-7.7); NEUTROPHILS % (AUTO) 92.5 % (42-75); PLATELET COUNT 375 X10'3 (140-440); RED BLOOD COUNT 5.58 X10'6 (4.20-5.60); WHITE BLOOD COUNT 10.7 X10'3 (4.5-11.0)
[2021-07-26] MEDS ORDERED: LIDOcaine 1%/PF 5ML 10 MG/ML VIAL ONE (14:48)
[2021-07-26 16:15] LABS: ALANINE AMINOTRANSFERASE 50 U/L (12-78); ALBUMIN 2.3 G/DL (3.4-5.0); ALBUMIN/GLOBULIN RATIO 0.5 (1.1-1.5); ALKALINE PHOSPHATASE 95 IU/L (46-116); ANION GAP 3 (8-16); ASPARTATE AMINO TRANSFERASE 20 U/L (10-37); BILIRUBIN,TOTAL 0.3 MG/DL (0.1-1.0); BLOOD UREA NITROGEN 38 MG/DL (7-18); BUN/CREATININE RATIO 44.7 (6.6-38.0); CALCIUM 8.6 MG/DL (8.5-10.1); CHLORIDE 106 MMOL/L (99-107); CREATININE 0.85 MG/DL (0.40-0.90); GLUCOSE 185 MG/DL (70-104); POTASSIUM 4.7 MMOL/L (3.5-5.1); SODIUM 142 MMOL/L (135-145); TOTAL CARBON DIOXIDE 32.9 MMOL/L (24-32); TOTAL PROTEIN 6.6 G/DL (6.4-8.2); eGFR 68 ML/MIN
--- NOTE | 2021-07-26 18:18 | NUR ---
Problems reprioritized. Patient report given, questions answered & plan of care reviewed with ANU Kaur.
[2021-07-26] MEDS: psyllium seed 3.4 gm packet PO SCH (20:52)
[2021-07-27 02:00] VITALS: BP 109/62
[2021-07-27] MEDS: diltiazem 30mg tablet PO SCH ×4 (02:00→21:16)
[2021-07-27] MEDS: HYDROcodone/acetaminophen 10/325mg tab PO PRN ×2 (05:02→18:49)
[2021-07-27 06:00] VITALS: BP 113/69
[2021-07-27 06:48] LABS: BASOPHILS % (AUTO) 0 % (0-1); EOSINOPHILS % (AUTO) 0 % (0-6); HEMATOCRIT 47.2 % (35.0-45.0); HEMOGLOBIN 15.4 g/dl (12.0-16.0); LYMPHOCYTES # (AUTO) 0.9 X10'3 (1.1-4.8); LYMPHOCYTES % (AUTO) 6.5 % (21-51); MEAN CORPUSCULAR HEMOGLOBIN 29.1 PG (27.0-31.0); MEAN CORPUSCULAR HGB CONC 32.6 g/dL (33.0-36.5); MEAN CORPUSCULAR VOLUME 89.2 FL (78-98); MEAN PLATELET VOLUME 8.1 FL (7.4-10.4); MONOCYTES # (AUTO) 0.7 X10'3 (0-0.9); MONOCYTES % (AUTO) 4.9 % (2-12); NEUTROPHILS % (AUTO) 88.6 % (42-75); PLATELET COUNT 334 X10'3 (140-440); RED BLOOD COUNT 5.29 X10'6 (4.20-5.60); RED CELL DISTRIBUTION WIDTH 15.4 % (11.5-14.5); WHITE BLOOD COUNT 13.5 X10'3 (4.5-11.0)
[2021-07-27 06:58] LABS: ALANINE AMINOTRANSFERASE 40 U/L (12-78); ALBUMIN/GLOBULIN RATIO 0.6 (1.1-1.5); ALKALINE PHOSPHATASE 81 IU/L (46-116); ANION GAP -1 (8-16); ASPARTATE AMINO TRANSFERASE 17 U/L (10-37); BILIRUBIN,TOTAL 0.3 MG/DL (0.1-1.0); BLOOD UREA NITROGEN 38 MG/DL (7-18); BUN/CREATININE RATIO 54.3 (6.6-38.0); CALCIUM 8.4 MG/DL (8.5-10.1); CHLORIDE 108 MMOL/L (99-107); GLUCOSE 105 MG/DL (70-104); POTASSIUM 5.1 MMOL/L (3.5-5.1); SODIUM 140 MMOL/L (135-145); TOTAL CARBON DIOXIDE 33.3 MMOL/L (24-32); TOTAL PROTEIN 5.6 G/DL (6.4-8.2); eGFR 85 ML/MIN
[2021-07-27] MEDS: ipratropium/albuterol 3ml nebule NEB SCH ×5 (07:28→23:22)
[2021-07-27] MEDS: lactose-reduced food (Ensure High Protein) 237ml bottle PO SCH ×3 (08:00→18:40)
[2021-07-27] MEDS: docusate sod 100mg capsule PO SCH ×2 (08:00→21:16)
[2021-07-27] MEDS: K and/or MAG REPLACEMENT MC SCH ×2 (08:00→20:00)
[2021-07-27] MEDS: CefTRIAXone 2gm/NS 100ml IVPB 100 ML IV SCH (08:00)
[2021-07-27] MEDS ORDERED: predniSONE 20 mg tablet PO SCH (08:00)
[2021-07-27] MEDS: pantoprazole 40mg Tablet.DR PO SCH (08:57)
[2021-07-27] MEDS: multivitamins, therapeutics tablet PO SCH (08:57)
[2021-07-27] MEDS: nicotine 14mg patch - 24hr TD SCH (08:59)
[2021-07-27] MEDS: heparin, porcine 5000 units/ml vial SQ SCH ×2 (08:59→15:51)
[2021-07-27] MEDS: famotidine 20mg tablet PO PRN ×2 (10:16→21:16)
--- NOTE | 2021-07-27 11:56 | NUR ---
Reassessment: Noted patient's PO intake has declined to 0-25% PO intake of meals. Pt receiving an Ensure High Protein TID of which pt documented with 100% PO intake x 4 with refusal of five ONS. Pt seen at bedside states she believes her appetite is improving and reports eating better at breakfast this morning. Per EMR pt with 75% PO intake of breakfast. Pt does state she is drinking the ONS now and denies flavor preference. Pt states she doesn't eat a lot of meat and reports some difficulty swallowing meat d/t dry throat, however pt declines texture modification or extra gravy. Food preferences were obtained and d/w dietary, see below. Pt denies any food allergies. RD encouraged PO intake and provided pt with RD contact information and encouraged pt to reach out for any additional food preferences. LBM 07/26. Will continue to follow closely. Recommendations: 1. Liberalize to regular diet 2. Ensure High Protein TIDWM 3. [place] food preferences: Sandwiches for lunch entrees; alternate yogurt and cottage cheese WL; crackers TID; mayonnaise WS 4. Bowel care per rx 5. Scaled wt this admit; subsequent weekly scaled weights Addendum: 07/27/21 at [address] Amended: Links added.
[2021-07-27] MEDS: morphine 2 MG/ML inj. syringe IV PRN (12:21)
[2021-07-27 12:40] VITALS: BP 93/58
[2021-07-27 15:00] VITALS: BP 141/75
[2021-07-27 18:38] VITALS: BP 103/60
[2021-07-27] MEDS: psyllium seed 3.4 gm packet PO SCH (21:17)
[2021-07-27 22:00] VITALS: BP 101/53
[2021-07-28 02:00] VITALS: BP 104/68
[2021-07-28] MEDS: diltiazem 30mg tablet PO SCH ×4 (02:54→20:03)
[2021-07-28 05:41] LABS: BASOPHILS % (AUTO) 0.3 % (0-1); EOSINOPHILS % (AUTO) 0.3 % (0-6); HEMATOCRIT 50.5 % (35.0-45.0); HEMOGLOBIN 16.3 g/dl (12.0-16.0); LYMPHOCYTES # (AUTO) 1.2 X10'3 (1.1-4.8); LYMPHOCYTES % (AUTO) 10.2 % (21-51); MEAN CORPUSCULAR HEMOGLOBIN 28.4 PG (27.0-31.0); MEAN CORPUSCULAR HGB CONC 32.3 g/dL (33.0-36.5); MEAN PLATELET VOLUME 8.2 FL (7.4-10.4); MONOCYTES # (AUTO) 0.7 X10'3 (0-0.9); MONOCYTES % (AUTO) 6.3 % (2-12); NEUTROPHILS # (AUTO) 9.5 X10'3 (1.8-7.7); NEUTROPHILS % (AUTO) 82.9 % (42-75); PLATELET COUNT 334 X10'3 (140-440); RED BLOOD COUNT 5.73 X10'6 (4.20-5.60); RED CELL DISTRIBUTION WIDTH 14.8 % (11.5-14.5); WHITE BLOOD COUNT 11.4 X10'3 (4.5-11.0)
[2021-07-28 06:01] LABS: ALANINE AMINOTRANSFERASE 57 U/L (12-78); ALBUMIN 2.1 G/DL (3.4-5.0); ALBUMIN/GLOBULIN RATIO 0.6 (1.1-1.5); ALKALINE PHOSPHATASE 83 IU/L (46-116); ANION GAP 1 (8-16); ASPARTATE AMINO TRANSFERASE 19 U/L (10-37); BILIRUBIN,TOTAL 0.4 MG/DL (0.1-1.0); BLOOD UREA NITROGEN 35 MG/DL (7-18); BUN/CREATININE RATIO 51.5 (6.6-38.0); CALCIUM 8.8 MG/DL (8.5-10.1); CHLORIDE 105 MMOL/L (99-107); CREATININE 0.68 MG/DL (0.40-0.90); GLUCOSE 85 MG/DL (70-104); POTASSIUM 4.7 MMOL/L (3.5-5.1); SODIUM 142 MMOL/L (135-145); TOTAL PROTEIN 5.8 G/DL (6.4-8.2); eGFR 88 ML/MIN
[2021-07-28] MEDS: ipratropium/albuterol 3ml nebule NEB SCH ×3 (07:25→15:22)
[2021-07-28] MEDS: K and/or MAG REPLACEMENT MC SCH ×2 (08:00→20:00)
[2021-07-28] MEDS: lactose-reduced food (Ensure High Protein) 237ml bottle PO SCH ×3 (08:00→18:00)
[2021-07-28] MEDS: nicotine 14mg patch - 24hr TD SCH (08:00)
[2021-07-28] MEDS: multivitamins, therapeutics tablet PO SCH (08:09)
[2021-07-28] MEDS: predniSONE 20 mg tablet PO SCH (08:09)
[2021-07-28] MEDS: pantoprazole 40mg Tablet.DR PO SCH (08:09)
[2021-07-28] MEDS: heparin, porcine 5000 units/ml vial SQ SCH ×3 (08:09→15:16)
[2021-07-28] MEDS: docusate sod 100mg capsule PO SCH ×2 (08:10→20:03)
[2021-07-28] MEDS: morphine 2 MG/ML inj. syringe IV PRN (08:11)
[2021-07-28] MEDS: CefTRIAXone 2gm/NS 100ml IVPB 100 ML IV SCH (08:21)
[2021-07-28] MEDS: HYDROcodone/acetaminophen 10/325mg tab PO PRN ×3 (11:14→22:33)
[2021-07-28 15:00] VITALS: BP 105/74
--- NOTE | 2021-07-28 15:36 | NUR ---
Dr. Felecia lawson RN RE: Tammy Riddle RM #5491S w/ R chest tube 1) Change [place] 10 to Q4 works best 2) CxR diminished R lung sounds, increased O2 demands to stay above 93%. She appears in mild distress. Please and thank you. ... message sent via online messaging system immediately prior to this entry
[2021-07-28] MEDS: psyllium seed 3.4 gm packet PO SCH (20:03)
[2021-07-29] MEDS: heparin, porcine 5000 units/ml vial SQ SCH ×4 (00:18→23:28)
[2021-07-29 02:19] VITALS: BP 107/67
[2021-07-29] MEDS: diltiazem 30mg tablet PO SCH ×4 (02:21→21:00)
[2021-07-29 06:00] VITALS: BP 99/70
[2021-07-29 06:21] LABS: BASOPHILS % (AUTO) 0.2 % (0-1); EOSINOPHILS # (AUTO) 0.1 X10'3 (0-0.9); EOSINOPHILS % (AUTO) 0.7 % (0-6); HEMATOCRIT 49.9 % (35.0-45.0); HEMOGLOBIN 16.5 g/dl (12.0-16.0); LYMPHOCYTES # (AUTO) 1.3 X10'3 (1.1-4.8); MEAN CORPUSCULAR HGB CONC 33.1 g/dL (33.0-36.5); MEAN CORPUSCULAR VOLUME 87.7 FL (78-98); MEAN PLATELET VOLUME 8.9 FL (7.4-10.4); MONOCYTES # (AUTO) 1.2 X10'3 (0-0.9); MONOCYTES % (AUTO) 8.8 % (2-12); NEUTROPHILS # (AUTO) 11.4 X10'3 (1.8-7.7); NEUTROPHILS % (AUTO) 81.3 % (42-75); PLATELET COUNT 332 X10'3 (140-440); RED BLOOD COUNT 5.69 X10'6 (4.20-5.60)
[2021-07-29 06:47] LABS: ALANINE AMINOTRANSFERASE 45 U/L (12-78); ALBUMIN 2.1 G/DL (3.4-5.0); ALBUMIN/GLOBULIN RATIO 0.6 (1.1-1.5); ALKALINE PHOSPHATASE 79 IU/L (46-116); ANION GAP -1 (8-16); ASPARTATE AMINO TRANSFERASE 17 U/L (10-37); BILIRUBIN,TOTAL 0.5 MG/DL (0.1-1.0); BLOOD UREA NITROGEN 33 MG/DL (7-18); BUN/CREATININE RATIO 51.6 (6.6-38.0); CALCIUM 8.4 MG/DL (8.5-10.1); CHLORIDE 103 MMOL/L (99-107); CREATININE 0.64 MG/DL (0.40-0.90); GLUCOSE 80 MG/DL (70-104); POTASSIUM 4.8 MMOL/L (3.5-5.1); SODIUM 137 MMOL/L (135-145); TOTAL CARBON DIOXIDE 34.5 MMOL/L (24-32); TOTAL PROTEIN 5.7 G/DL (6.4-8.2); eGFR > 90 ML/MIN
[2021-07-29] MEDS: ipratropium/albuterol 3ml nebule NEB SCH ×5 (06:50→20:52)
[2021-07-29] MEDS: predniSONE 20 mg tablet PO SCH (07:45)
[2021-07-29] MEDS: multivitamins, therapeutics tablet PO SCH (07:45)
[2021-07-29] MEDS: docusate sod 100mg capsule PO SCH ×2 (07:45→21:00)
[2021-07-29] MEDS: nicotine 14mg patch - 24hr TD SCH (07:45)
[2021-07-29] MEDS: CefTRIAXone 2gm/NS 100ml IVPB 100 ML IV SCH (07:45)
[2021-07-29] MEDS: HYDROcodone/acetaminophen 10/325mg tab PO PRN ×4 (07:46→23:18)
[2021-07-29] MEDS: pantoprazole 40mg Tablet.DR PO SCH (07:46)
[2021-07-29] MEDS: lactose-reduced food (Ensure High Protein) 237ml bottle PO SCH ×3 (08:00→18:04)
[2021-07-29] MEDS: K and/or MAG REPLACEMENT MC SCH ×2 (08:00→20:00)
[2021-07-29 11:00] VITALS: BP 114/69
[2021-07-29 15:00] VITALS: BP 109/68
[2021-07-29] MEDS: ipratropium/albuterol 3ml nebule NEB PRN (17:06)
[2021-07-29 18:00] VITALS: BP 107/67
--- NOTE | 2021-07-29 19:12 | NUR ---
Patient in room PCU 3022S. I have received report from Yara and had the opportunity to ask questions and assume patient care.
[2021-07-29] MEDS: psyllium seed 3.4 gm packet PO SCH (21:00)
[2021-07-29 22:00] VITALS: BP 99/66
[2021-07-30] VITALS (7 sets, daily range): BP systolic 100–121; BP diastolic 63–77
[2021-07-30] MEDS: HYDROcodone/acetaminophen 10/325mg tab PO PRN ×6 (03:53→23:11)
[2021-07-30] MEDS: diltiazem 30mg tablet PO SCH ×4 (04:31→20:06)
--- NOTE | 2021-07-30 06:40 | NUR ---
Patient in room PCU 3028. I have received report from ANU Kiser and had the opportunity to ask questions and assume patient care.
--- NOTE | 2021-07-30 06:57 | NUR ---
Problems reprioritized. Patient report given, questions answered & plan of care reviewed with Ximena RN.
[2021-07-30] MEDS: ipratropium/albuterol 3ml nebule NEB SCH ×5 (07:35→22:51)
[2021-07-30] MEDS: lactose-reduced food (Ensure High Protein) 237ml bottle PO SCH ×3 (07:51→18:03)
[2021-07-30] MEDS: K and/or MAG REPLACEMENT MC SCH ×2 (08:00→20:00)
[2021-07-30] MEDS ORDERED: prednisone 10mg tablet PO SCH (08:00)
[2021-07-30] MEDS: docusate sod 100mg capsule PO SCH ×3 (08:11→22:42)
[2021-07-30] MEDS: multivitamins, therapeutics tablet PO SCH (08:11)
[2021-07-30] MEDS: CefTRIAXone 2gm/NS 100ml IVPB 100 ML IV SCH (08:11)
[2021-07-30] MEDS: pantoprazole 40mg Tablet.DR PO SCH (08:11)
[2021-07-30] MEDS: heparin, porcine 5000 units/ml vial SQ SCH ×2 (08:13→17:38)
[2021-07-30 08:22] LABS: BASOPHILS % (AUTO) 0.2 % (0-1); EOSINOPHILS # (AUTO) 0.1 X10'3 (0-0.9); EOSINOPHILS % (AUTO) 0.4 % (0-6); HEMATOCRIT 46.9 % (35.0-45.0); HEMOGLOBIN 15.3 g/dl (12.0-16.0); LYMPHOCYTES # (AUTO) 0.8 X10'3 (1.1-4.8); LYMPHOCYTES % (AUTO) 5.1 % (21-51); MEAN CORPUSCULAR HEMOGLOBIN 28.8 PG (27.0-31.0); MEAN CORPUSCULAR HGB CONC 32.5 g/dL (33.0-36.5); MEAN CORPUSCULAR VOLUME 88.6 FL (78-98); MEAN PLATELET VOLUME 9.1 FL (7.4-10.4); NEUTROPHILS # (AUTO) 12.3 X10'3 (1.8-7.7); NEUTROPHILS % (AUTO) 81.3 % (42-75); PLATELET COUNT 274 X10'3 (140-440); RED BLOOD COUNT 5.29 X10'6 (4.20-5.60); RED CELL DISTRIBUTION WIDTH 14.8 % (11.5-14.5); WHITE BLOOD COUNT 15.2 X10'3 (4.5-11.0)
[2021-07-30 08:47] LABS: ALANINE AMINOTRANSFERASE 45 U/L (12-78); ALBUMIN 1.9 G/DL (3.4-5.0); ALBUMIN/GLOBULIN RATIO 0.5 (1.1-1.5); ALKALINE PHOSPHATASE 82 IU/L (46-116); ANION GAP 2 (8-16); ASPARTATE AMINO TRANSFERASE 19 U/L (10-37); BILIRUBIN,TOTAL 0.6 MG/DL (0.1-1.0); BLOOD UREA NITROGEN 32 MG/DL (7-18); BUN/CREATININE RATIO 53.3 (6.6-38.0); CALCIUM 8.5 MG/DL (8.5-10.1); CHLORIDE 100 MMOL/L (99-107); GLUCOSE 122 MG/DL (70-104); SODIUM 137 MMOL/L (135-145); TOTAL CARBON DIOXIDE 35.4 MMOL/L (24-32); TOTAL PROTEIN 5.6 G/DL (6.4-8.2); eGFR > 90 ML/MIN
[2021-07-30] MEDS: nicotine 7mg patch - 24hr TD SCH (08:47)
--- NOTE | 2021-07-30 09:19 | NUR ---
Reassessment: Pt continues on Heart Healthy diet w/ low PO intake, avg 33% x 10 meals and 60% x 8 ONS, receiving multiple nutrition interventions on meal trays. Overall partially meeting est nutrient needs at this time. Recommend liberalizing to Regular diet in view of poor PO intake. LBM 07/28 receiving routine colace. No change to recommendations at this time, will continue to monitor. Recommendations: 1. Liberalize to regular diet 2. Ensure High Protein TIDWM; consider changing to Ensure Enlive 3. [place] food preferences: Sandwiches for lunch entrees; alternate yogurt and cottage cheese WL; crackers TID; mayonnaise WS 4. Bowel care per rx 5. Scaled wt this admit; subsequent weekly scaled weights Addendum: 07/30/21 at [address] Amended: Links added.
[2021-07-30] MEDS ORDERED: HYDROcodone/acetaminophen 5mg/325mg tablet PO PRN (10:40)
[2021-07-30] MEDS: ondansetron/PF 4mg/2ml inj IV PRN (14:11)
--- NOTE | 2021-07-30 18:36 | NUR ---
Patient in room PCU 3028. I have received report from ANU Bueno and had the opportunity to ask questions and assume patient care.
--- NOTE | 2021-07-30 18:40 | NUR ---
Problems reprioritized. Patient report given, questions answered & plan of care reviewed with ANU Bañuelos.
[2021-07-30] MEDS: psyllium seed 3.4 gm packet PO SCH (20:06)
[2021-07-31] VITALS (16 sets, daily range): BP systolic 101–151; BP diastolic 64–104
[2021-07-31] MEDS: heparin, porcine 5000 units/ml vial SQ SCH ×3 (01:44→16:24)
[2021-07-31] MEDS: diltiazem 30mg tablet PO SCH ×4 (01:44→20:56)
[2021-07-31] MEDS: ipratropium/albuterol 3ml nebule NEB PRN (03:16)
[2021-07-31] MEDS: HYDROcodone/acetaminophen 10/325mg tab PO PRN (05:50)
--- NOTE | 2021-07-31 06:38 | NUR ---
Problems reprioritized. Patient report given, questions answered & plan of care reviewed with ANU Livingston.
[2021-07-31] MEDS: ipratropium/albuterol 3ml nebule NEB SCH ×5 (07:10→23:18)
[2021-07-31] MEDS: ondansetron/PF 4mg/2ml inj IV PRN ×2 (07:50→20:56)
[2021-07-31] MEDS: K and/or MAG REPLACEMENT MC SCH ×2 (08:00→20:00)
[2021-07-31] MEDS: lactose-reduced food (Ensure High Protein) 237ml bottle PO SCH ×3 (08:00→18:00)
--- NOTE | 2021-07-31 08:30 | NUR ---
received call from cxr stating that right pigtail cath appears dislodged and no longer in pleural cavity. Notified Dr. Garcia then called interventional radiology to notify. They will take pt down to determine next step. 0900 pt off unit to interventional radiology.
--- NOTE | 2021-07-31 08:43 | NUR ---
sent to [facility]: [id number] Venkatesh: cxr shows chest tube dislodged and no longer in pleural cavity. Turn off suction? Please advise. thank you. Yara BERNNAN [phone]
[2021-07-31] MEDS ORDERED: LIDOcaine 1%/PF 5ML 10 MG/ML VIAL ONE (09:27)
[2021-07-31 09:32] LABS: ALANINE AMINOTRANSFERASE 43 U/L (12-78); ALBUMIN 1.9 G/DL (3.4-5.0); ALBUMIN/GLOBULIN RATIO 0.4 (1.1-1.5); ALKALINE PHOSPHATASE 97 IU/L (46-116); ANION GAP 1 (8-16); ASPARTATE AMINO TRANSFERASE 20 U/L (10-37); BILIRUBIN,TOTAL 0.4 MG/DL (0.1-1.0); BLOOD UREA NITROGEN 25 MG/DL (7-18); BUN/CREATININE RATIO 40.3 (6.6-38.0); CALCIUM 9.3 MG/DL (8.5-10.1); CHLORIDE 96 MMOL/L (99-107); CREATININE 0.62 MG/DL (0.40-0.90); GLUCOSE 105 MG/DL (70-104); SODIUM 136 MMOL/L (135-145); TOTAL CARBON DIOXIDE 39.5 MMOL/L (24-32); TOTAL PROTEIN 6.3 G/DL (6.4-8.2); eGFR > 90 ML/MIN
[2021-07-31 09:34] LABS: POTASSIUM 5.5 MMOL/L (3.5-5.1)
[2021-07-31 10:39] LABS: BASOPHILS % (AUTO) 0.1 % (0-1); EOSINOPHILS # (AUTO) 0.1 X10'3 (0-0.9); EOSINOPHILS % (AUTO) 0.4 % (0-6); HEMATOCRIT 43.7 % (35.0-45.0); HEMOGLOBIN 14.2 g/dl (12.0-16.0); LYMPHOCYTES # (AUTO) 0.5 X10'3 (1.1-4.8); LYMPHOCYTES % (AUTO) 2.8 % (21-51); MEAN CORPUSCULAR HEMOGLOBIN 28.8 PG (27.0-31.0); MEAN CORPUSCULAR HGB CONC 32.5 g/dL (33.0-36.5); MEAN CORPUSCULAR VOLUME 88.6 FL (78-98); MEAN PLATELET VOLUME 8.8 FL (7.4-10.4); MONOCYTES # (AUTO) 2.4 X10'3 (0-0.9); MONOCYTES % (AUTO) 14.6 % (2-12); NEUTROPHILS # (AUTO) 13.3 X10'3 (1.8-7.7); NEUTROPHILS % (AUTO) 82.1 % (42-75); PLATELET COUNT 328 X10'3 (140-440); RED BLOOD COUNT 4.93 X10'6 (4.20-5.60); RED CELL DISTRIBUTION WIDTH 14.7 % (11.5-14.5); WHITE BLOOD COUNT 16.2 X10'3 (4.5-11.0)
[2021-07-31] MEDS ORDERED: HYDROcodone/acetaminophen 5mg/325mg tablet PO PRN (11:00)
[2021-07-31] MEDS ORDERED: metoclopramide 10mg tablet PO PRN (11:00)
[2021-07-31] MEDS: CefTRIAXone 2gm/NS 100ml IVPB 100 ML IV SCH (11:00)
[2021-07-31] MEDS ORDERED: sodium polystyrene sulfonate 15gm/60ml oral suspension PO ONE (11:05)
[2021-07-31] MEDS: nicotine 7mg patch - 24hr TD SCH (13:23)
[2021-07-31] MEDS: multivitamins, therapeutics tablet PO SCH (13:23)
[2021-07-31] MEDS: pantoprazole 40mg Tablet.DR PO SCH (13:23)
[2021-07-31] MEDS: polyethylene glycol 3350 17gm powd pack PO SCH ×2 (13:24→21:00)
[2021-07-31] MEDS: psyllium seed 3.4 gm packet PO SCH (21:00)
--- NOTE | 2021-07-31 22:25 | NUR ---
Bladder scanned pt 64ml in bladder.
[2021-08-01 01:49] VITALS: BP 115/78
[2021-08-01] MEDS: heparin, porcine 5000 units/ml vial SQ SCH ×3 (01:53→15:22)
[2021-08-01] MEDS: diltiazem 30mg tablet PO SCH ×4 (01:56→21:47)
--- NOTE | 2021-08-01 06:40 | NUR ---
Problems reprioritized. Patient report given, questions answered & plan of care reviewed with ANU Elaine.
[2021-08-01 07:00] VITALS: BP 120/71
[2021-08-01] MEDS: ipratropium/albuterol 3ml nebule NEB SCH ×5 (07:29→23:15)
--- NOTE | 2021-08-01 07:43 | NUR ---
Page Sent promotional table spacer PAGER ID: [phone] MESSAGE: [id number] Venkatesh. I ws notified by health care sanitary technician that chest xray from this morning is progressively worse since yesterday. Since yesterday her demand has increased from 6L to 10L. [place] [phone]
[2021-08-01] MEDS: pantoprazole 40mg Tablet.DR PO SCH (07:53)
[2021-08-01] MEDS: multivitamins, therapeutics tablet PO SCH (07:53)
[2021-08-01] MEDS: CefTRIAXone 2gm/NS 100ml IVPB 100 ML IV SCH (07:53)
[2021-08-01] MEDS: nicotine 7mg patch - 24hr TD SCH (07:54)
[2021-08-01] MEDS: lactose-reduced food (Ensure High Protein) 237ml bottle PO SCH ×3 (07:54→18:00)
[2021-08-01] MEDS: K and/or MAG REPLACEMENT MC SCH ×2 (08:00→20:00)
[2021-08-01 09:41] LABS: BASOPHILS % (AUTO) 0.2 % (0-1); EOSINOPHILS % (AUTO) 0.1 % (0-6); HEMATOCRIT 43.2 % (35.0-45.0); HEMOGLOBIN 14.1 g/dl (12.0-16.0); LYMPHOCYTES # (AUTO) 0.5 X10'3 (1.1-4.8); LYMPHOCYTES % (AUTO) 3.6 % (21-51); MEAN CORPUSCULAR HGB CONC 32.5 g/dL (33.0-36.5); MEAN CORPUSCULAR VOLUME 89.1 FL (78-98); MONOCYTES % (AUTO) 13.8 % (2-12); NEUTROPHILS # (AUTO) 11.8 X10'3 (1.8-7.7); NEUTROPHILS % (AUTO) 82.3 % (42-75); PLATELET COUNT 285 X10'3 (140-440); RED BLOOD COUNT 4.85 X10'6 (4.20-5.60); RED CELL DISTRIBUTION WIDTH 14.9 % (11.5-14.5); WHITE BLOOD COUNT 14.3 X10'3 (4.5-11.0)
--- NOTE | 2021-08-01 09:47 | NUR ---
Reassessment: Pt continues on Heart Healthy diet w/ low PO intake, avg 20% x 10 meals and 53% x 8 ONS, receiving multiple nutrition interventions on meal trays. Overall partially meeting est nutrient needs at this time. Recommend liberalizing to Regular diet in view of poor PO intake. Since PO has remained insufficient throughout LOS (12 days) and BLE 3+ edema, pt meets minimum criteria for malnutrition, MD notified. Pt can benefit from Supplemental TF at this time to assist w/ meeting needs. On 9L high flow oxygen per documentation LBM 07/28 receiving routine and PRN bowel care. Will continue to monitor. Recommendations: 1. Liberalize to regular diet 2. Ensure High Protein TIDWM; consider changing to Ensure Enlive 3. [place] food preferences: Sandwiches for lunch entrees; alternate yogurt and cottage cheese WL; crackers TID; mayonnaise WS 4. Consider Supplemental TF given prolonged inadequate PO intake 5. Bowel care per rx 6. Scaled wt this admit; subsequent weekly scaled weights Addendum: 08/01/21 at [address] Amended: Links added.
[2021-08-01 09:50] LABS: ALANINE AMINOTRANSFERASE 33 U/L (12-78); ALBUMIN 1.7 G/DL (3.4-5.0); ALBUMIN/GLOBULIN RATIO 0.4 (1.1-1.5); ALKALINE PHOSPHATASE 130 IU/L (46-116); ANION GAP 4 (8-16); ASPARTATE AMINO TRANSFERASE 19 U/L (10-37); BILIRUBIN,TOTAL 0.5 MG/DL (0.1-1.0); BLOOD UREA NITROGEN 22 MG/DL (7-18); BUN/CREATININE RATIO 45.8 (6.6-38.0); CALCIUM 8.7 MG/DL (8.5-10.1); CHLORIDE 98 MMOL/L (99-107); CREATININE 0.48 MG/DL (0.40-0.90); GLUCOSE 81 MG/DL (70-104); POTASSIUM 4.6 MMOL/L (3.5-5.1); SODIUM 136 MMOL/L (135-145); TOTAL PROTEIN 5.8 G/DL (6.4-8.2); eGFR > 90 ML/MIN
[2021-08-01 11:00] VITALS: BP 100/68
[2021-08-01] MEDS: famotidine 20mg tablet PO PRN (12:30)
[2021-08-01] MEDS ORDERED: tPA-cathflo 2 MG/2 ml IV flush ONE (13:38)
[2021-08-01 15:00] VITALS: BP 114/62
--- NOTE | 2021-08-01 16:32 | NUR ---
stopper on chest tube opened at [address] Jackson post TPA instillation.
[2021-08-01 18:00] VITALS: BP 105/64
--- NOTE | 2021-08-01 18:24 | NUR ---
Problems reprioritized. Patient report given, questions answered & plan of care reviewed with Edda BRENNAN. Patient resting in no acute distress.
[2021-08-01] MEDS: polyethylene glycol 3350 17gm powd pack PO SCH (21:00)
[2021-08-01] MEDS: psyllium seed 3.4 gm packet PO SCH (21:47)
[2021-08-01] MEDS: HYDROcodone/acetaminophen 10/325mg tab PO PRN (21:48)
[2021-08-01 22:00] VITALS: BP 105/64
[2021-08-02] VITALS (7 sets, daily range): BP systolic 107–133; BP diastolic 66–79
[2021-08-02] MEDS: heparin, porcine 5000 units/ml vial SQ SCH ×3 (00:41→16:12)
[2021-08-02] MEDS: diltiazem 30mg tablet PO SCH ×4 (02:58→19:29)
[2021-08-02] MEDS: HYDROcodone/acetaminophen 10/325mg tab PO PRN ×2 (02:58→17:29)
[2021-08-02] MEDS: ipratropium/albuterol 3ml nebule NEB PRN (05:47)
--- NOTE | 2021-08-02 06:15 | NUR ---
Problems reprioritized. Patient report given, questions answered & plan of care reviewed with ANU Leyva.
[2021-08-02] MEDS: ipratropium/albuterol 3ml nebule NEB SCH ×5 (07:11→23:00)
[2021-08-02 07:46] LABS: HEMATOCRIT 40.8 % (35.0-45.0); HEMOGLOBIN 13.4 g/dl (12.0-16.0); MEAN CORPUSCULAR HEMOGLOBIN 28.8 PG (27.0-31.0); MEAN CORPUSCULAR HGB CONC 32.9 g/dL (33.0-36.5); MEAN CORPUSCULAR VOLUME 87.5 FL (78-98); PLATELET COUNT 456 X10'3 (140-440); RED BLOOD COUNT 4.66 X10'6 (4.20-5.60); RED CELL DISTRIBUTION WIDTH 14.8 % (11.5-14.5); WHITE BLOOD COUNT 16.5 X10'3 (4.5-11.0)
[2021-08-02] MEDS: K and/or MAG REPLACEMENT MC SCH ×2 (08:00→20:00)
[2021-08-02] MEDS: lactose-reduced food (Ensure High Protein) 237ml bottle PO SCH ×4 (08:19→19:30)
[2021-08-02 08:30] LABS: ALANINE AMINOTRANSFERASE 33 U/L (12-78); ALBUMIN 1.6 G/DL (3.4-5.0); ALBUMIN/GLOBULIN RATIO 0.4 (1.1-1.5); ALKALINE PHOSPHATASE 136 IU/L (46-116); ANION GAP 4 (8-16); ASPARTATE AMINO TRANSFERASE 19 U/L (10-37); BILIRUBIN,TOTAL 0.5 MG/DL (0.1-1.0); BLOOD UREA NITROGEN 20 MG/DL (7-18); CALCIUM 8.5 MG/DL (8.5-10.1); CHLORIDE 98 MMOL/L (99-107); CREATININE 0.54 MG/DL (0.40-0.90); GLUCOSE 102 MG/DL (70-104); POTASSIUM 4.7 MMOL/L (3.5-5.1); SODIUM 136 MMOL/L (135-145); TOTAL CARBON DIOXIDE 33.8 MMOL/L (24-32); TOTAL PROTEIN 5.9 G/DL (6.4-8.2); eGFR > 90 ML/MIN
[2021-08-02] MEDS: CefTRIAXone 2gm/NS 100ml IVPB 100 ML IV SCH (08:47)
[2021-08-02] MEDS: multivitamins, therapeutics tablet PO SCH (08:47)
[2021-08-02] MEDS: famotidine 20mg tablet PO PRN (08:47)
[2021-08-02] MEDS: pantoprazole 40mg Tablet.DR PO SCH (08:47)
[2021-08-02] MEDS: nicotine 7mg patch - 24hr TD SCH (08:48)
[2021-08-02 08:55] LABS: TOTAL CELLS COUNTED 100
[2021-08-02 08:56] LABS: PLATELET ESTIMATE INCREASED
[2021-08-02] MEDS ORDERED: tPA-cathflo 2 MG/2 ml IV flush ONE (10:36)
[2021-08-02] MEDS ORDERED: IOHEXOL 300 MG/ML 30ML INFUS..BTL IV ONE (14:06)
[2021-08-02] MEDS ORDERED: azithromycin/NS 500mg/250ml 250 ML IV SCH (19:00)
[2021-08-02] MEDS: polyethylene glycol 3350 17gm powd pack PO SCH (19:30)
[2021-08-02] MEDS: cefepime 1GM/NS ADD-VANTAGE 100 ML IV SCH (19:39)
[2021-08-02] MEDS: psyllium seed 3.4 gm packet PO SCH (21:34)
[2021-08-02] MEDS ORDERED: LIDOcaine 1% (10mg/ml) 2ml vial ONE (22:20)
--- NOTE | 2021-08-02 22:34 | NUR ---
Right arm mid looks to be infiltrated. IV access assessed at beginning of the shift with good flow. Dr. Joel paged with call back. MD has been made aware. Arm subsequently elevated
[2021-08-02] MEDS ORDERED: sevoflurane 250ml liquid IH ONE (22:52)
[2021-08-02] MEDS ORDERED: NORepinephrine 8 MG in NS 250 ML BAG (32 mcg/ml) IV ONE (22:52)
--- NOTE | 2021-08-02 22:53 | NUR ---
pt transported to OR for procedure with Dr. Joel. Accompanies by RN and tech. vitals see MAR
[2021-08-02] MEDS ORDERED: MIDAZolam 1mg/ml 10ml vial ONE (22:58)
[2021-08-02] MEDS ORDERED: fentaNYL /PF 50mcg/ml 5ml ampule ONE (22:59)
[2021-08-02] MEDS ORDERED: rocuronium 10mg/ml inj IV ONE (23:00)
[2021-08-02] MEDS ORDERED: propofol inj 20 ML IV ONE (23:00)
[2021-08-03] VITALS (33 sets, daily range): BP systolic 92–161; BP diastolic 48–89
[2021-08-03] MEDS ORDERED: ondansetron/PF 4mg/2ml inj IV PRN ×2 (00:45→02:30)
[2021-08-03] MEDS ORDERED: ringers solution, lacted 1,000 ML IV SCH (00:45)
[2021-08-03] MEDS ORDERED: albumin (Human) 5% 250ml 250 ML IV ONE (01:18)
[2021-08-03] MEDS ORDERED: albumin (Human) 5% 250ml 0 ML IV ONE (01:18)
[2021-08-03] MEDS ORDERED: rocuronium 10mg/ml inj IV ONE ×2 (01:58)
[2021-08-03] MEDS: diltiazem 30mg tablet PO SCH ×2 (02:00→07:12)
[2021-08-03] MEDS ORDERED: HYDROcodone/acetaminophen 10/325mg tab PO PRN ×2 (02:30)
[2021-08-03] MEDS ORDERED: morphine 4 MG/ML inj SYRINge IV PRN (02:30)
[2021-08-03] MEDS ORDERED: morphine 2 MG/ML inj. syringe IV PRN (02:30)
[2021-08-03] MEDS ORDERED: albuterol 2.5 MG/3 ML nebule NEB PRN (02:30)
[2021-08-03] MEDS ORDERED: metoclopramide 5 mg/ml inj IV PRN (02:30)
[2021-08-03] MEDS: lactose-reduced food (Ensure High Protein) 237ml bottle PO SCH ×2 (02:38→02:39)
--- NOTE | 2021-08-03 03:00 | NUR ---
Received to room 2013, accompanied by MD Canales and surgical crew. Placed on ventilator, arterial line and PA line pressure monitored. Chest tubes to suction at 20 cm. Soriano cath to gravity drainage. Dressings are dry and intact. See assessment record. All vasoactive drugs are infusing via central line.
[2021-08-03 03:29] LABS: BASOPHILS # (AUTO) 0.2 X10'3 (0-0.2); BASOPHILS % (AUTO) 1.3 % (0-1); EOSINOPHILS % (AUTO) 0.1 % (0-6); HEMATOCRIT 35.8 % (35.0-45.0); HEMOGLOBIN 11.5 g/dl (12.0-16.0); LYMPHOCYTES # (AUTO) 0.6 X10'3 (1.1-4.8); LYMPHOCYTES % (AUTO) 3.4 % (21-51); MEAN CORPUSCULAR HEMOGLOBIN 27.7 PG (27.0-31.0); MEAN CORPUSCULAR HGB CONC 32.1 g/dL (33.0-36.5); MEAN CORPUSCULAR VOLUME 86.1 FL (78-98); MEAN PLATELET VOLUME 8.7 FL (7.4-10.4); MONOCYTES # (AUTO) 1.3 X10'3 (0-0.9); MONOCYTES % (AUTO) 7.7 % (2-12); NEUTROPHILS # (AUTO) 14.4 X10'3 (1.8-7.7); NEUTROPHILS % (AUTO) 87.5 % (42-75); PLATELET COUNT 590 X10'3 (140-440); RED BLOOD COUNT 4.16 X10'6 (4.20-5.60); RED CELL DISTRIBUTION WIDTH 14.4 % (11.5-14.5); WHITE BLOOD COUNT 16.5 X10'3 (4.5-11.0)
[2021-08-03] MEDS: propofol 1000mg/100ml bottle 100 ML IV SCH ×3 (03:53→21:15)
[2021-08-03 03:54] LABS: ALANINE AMINOTRANSFERASE 31 U/L (12-78); ALBUMIN 1.4 G/DL (3.4-5.0); ALBUMIN/GLOBULIN RATIO 0.4 (1.1-1.5); ALKALINE PHOSPHATASE 141 IU/L (46-116); ANION GAP 3 (8-16); ASPARTATE AMINO TRANSFERASE 25 U/L (10-37); BILIRUBIN,TOTAL 0.7 MG/DL (0.1-1.0); BLOOD UREA NITROGEN 20 MG/DL (7-18); BUN/CREATININE RATIO 35.1 (6.6-38.0); CALCIUM 7.7 MG/DL (8.5-10.1); CHLORIDE 99 MMOL/L (99-107); CREATININE 0.57 MG/DL (0.40-0.90); GLUCOSE 158 MG/DL (70-104); MAGNESIUM 1.6 MG/DL (1.5-2.4); POTASSIUM 4.6 MMOL/L (3.5-5.1); SODIUM 135 MMOL/L (135-145); TOTAL PROTEIN 4.8 G/DL (6.4-8.2); eGFR > 90 ML/MIN
[2021-08-03] MEDS: cefepime 1GM/NS ADD-VANTAGE 100 ML IV SCH ×2 (03:55→07:10)
[2021-08-03] MEDS: FENTANYL-0.9 % NACL/PF 100 ML IV PRN ×2 (04:00→10:51)
[2021-08-03 04:01] LABS: ABG OXYGEN SATURATION 95.4 % (94-97); ABG PCO2 (T) 52.4 mmHg (32.0-45.0); ABG PO2 (T) 71.7 mmHg (75.0-100.0); FCOHb 0.5 % (0.0-3.9); FMetHb 0.3 % (0.0-1.5); FO2Hb 94.6 % (94-97); PATIENT TEMPERATURE 36.9; PEEP 8 cm H2O; RESPIRATORY RATE 12 b/min; TIDAL VOLUME 600 mL; TOTAL HEMOGLOBIN 12.7 G/dl (12.0-16.0)
--- NOTE | 2021-08-03 06:30 | NUR ---
Patient in room CICU 2013. I have received report from Kashif BRENNAN and had the opportunity to ask questions and assume patient care.
[2021-08-03] MEDS: pantoprazole 40mg Tablet.DR PO SCH (07:11)
[2021-08-03] MEDS: multivitamins, therapeutics tablet PO SCH (07:11)
[2021-08-03] MEDS: heparin, porcine 5000 units/ml vial SQ SCH ×3 (07:13→15:58)
[2021-08-03] MEDS: nicotine 7mg patch - 24hr TD SCH ×2 (07:17→08:48)
[2021-08-03] MEDS: ipratropium/albuterol 3ml nebule NEB SCH ×5 (07:31→22:58)
[2021-08-03] MEDS: K and/or MAG REPLACEMENT MC SCH ×2 (08:00→20:00)
[2021-08-03] MEDS ORDERED: gabapentin 300mg capsule PO SCH (08:00)
[2021-08-03] MEDS ORDERED: famotidine 20mg tablet OGT PRN (11:29)
[2021-08-03] MEDS ORDERED: acetaminophen 325mg/10.15ml oral unit dose solution OGT PRN ×2 (11:30)
[2021-08-03] MEDS ORDERED: magnesium hydroxide 30ml (MOM) UD suspension OGT PRN (11:33)
[2021-08-03] MEDS ORDERED: ondansetron 4mg/5ml UD cup OGT PRN (11:35)
[2021-08-03] MEDS ORDERED: HYDROcodone/acetaminophen 7.5MG/325MG per 15ml UD CUP OGT PRN ×3 (11:35)
[2021-08-03] MEDS ORDERED: HYDROcodone/acetaminophen 7.5MG/325MG per 15ml UD CUP PO PRN (11:35)
[2021-08-03] MEDS ORDERED: temazepam 15mg capsule OGT PRN (11:37)
--- NOTE | 2021-08-03 12:37 | NUR ---
TF Consult: Pt currently intubated s/p R thoracotomy/decortication/middle lobectomy/chest tube placement w/ OG in place and MAP 74 this AM per EMR. RD d/w pt poor nutrition status majority of admit refusing all meals/ONS 3 days prior to OR in addition to already meeting malnutrition criteria. NG to be placed w/ TF to start today and NG to remain for nutrition following extubation per balling head tender. TF recs below considering pt receiving Propofol at 8.31ml/hr providing 219 kcals/day. Will monitor for EN tolerance and further nutrition intervention needs this admit. Recommendations: 1. Continuous TF per MD using Vital HP at 65ml/hr goal; to provide 1560ml volume/day, 1560 kcals, 1304ml water, and 136g protein. 2. Additional water flush per MD; serum Na 135mmol/L this AM 3. PALB Q /; daily wts 4. Monitor for Propofol rates and EN tolerance/adjustment needs 5. routine bowel regimen; only small BM's since admit 15 days per EMR 6. Upon extubation; advance to regular diet as medically indicated 7. Once diet advances and PO assured; consider Ensure Enlive TIDWM given poor PO trends 8. Once PO diet returns honor pt food preferences: Sandwiches for lunch entrees; alternate yogurt and cottage cheese WL; crackers TID; mayonnaise WS Addendum: 08/03/21 at [address] Amended: Links added.
--- NOTE | 2021-08-03 13:16 | NUR ---
Mid shift note Pt discussed in rounds. Will leave intubated and sedated today with plan to wean tomorrow. Plan discussed and plan to put in NG for feeding this pt as she has not eaten for several days. Dr. Canales and Og to see pt. No additional orders received after update being provided.
[2021-08-03 14:19] LABS: PREALBUMIN 8.7 MG/DL (19-36)
--- NOTE | 2021-08-03 16:57 | NUR ---
Note Art line failed, CN to eval also but unable to salvage it. It was D/C'd with the cath tip in tact. 10 FR tube feed inserted into Rt nares to 65 cm. TF initiated via OG until placement of NG is confirmed.
[2021-08-03] MEDS: normal saline 1000ml 1,000 ML IV SCH (17:05)
[2021-08-03] MEDS: NORepinephrine 8mg/ 250ml NS 250 ML IV SCH ×2 (18:24→19:37)
[2021-08-03] MEDS: diltiazem 30mg tablet OGT SCH ×2 (18:26→20:00)
[2021-08-03] MEDS: lansoprazole 15mg solutab OGT SCH (18:46)
[2021-08-03] MEDS: gabapentin 300mg capsule OGT SCH (20:10)
[2021-08-03] MEDS: psyllium seed 3.4 gm packet OGT SCH (20:10)
[2021-08-03] MEDS: polyethylene glycol 3350 17gm powd pack OGT SCH (21:44)
[2021-08-04] VITALS (31 sets, daily range): BP systolic 46–172; BP diastolic 51–81
[2021-08-04] MEDS: diltiazem 30mg tablet OGT SCH ×4 (02:00→20:30)
[2021-08-04] MEDS: ipratropium/albuterol 3ml nebule NEB SCH ×6 (02:41→23:12)
[2021-08-04 02:48] LABS: BASOPHILS % (AUTO) 0.2 % (0-1); EOSINOPHILS # (AUTO) 0.1 X10'3 (0-0.9); EOSINOPHILS % (AUTO) 0.4 % (0-6); HEMATOCRIT 27.1 % (35.0-45.0); HEMOGLOBIN 9.2 g/dl (12.0-16.0); LYMPHOCYTES # (AUTO) 1.3 X10'3 (1.1-4.8); MEAN CORPUSCULAR HEMOGLOBIN 29.4 PG (27.0-31.0); MEAN CORPUSCULAR VOLUME 86.6 FL (78-98); MEAN PLATELET VOLUME 8.4 FL (7.4-10.4); MONOCYTES # (AUTO) 1.8 X10'3 (0-0.9); MONOCYTES % (AUTO) 10.8 % (2-12); NEUTROPHILS # (AUTO) 13.4 X10'3 (1.8-7.7); NEUTROPHILS % (AUTO) 80.6 % (42-75); PLATELET COUNT 586 X10'3 (140-440); RED BLOOD COUNT 3.12 X10'6 (4.20-5.60); RED CELL DISTRIBUTION WIDTH 14.4 % (11.5-14.5); WHITE BLOOD COUNT 16.7 X10'3 (4.5-11.0)
[2021-08-04 02:58] LABS: ABG BASE EXCESS 8.1 mmol/L (-2.0-2.0); ABG HCO3 33.7 mmol/L (22.0-26.0); ABG OXYGEN SATURATION 96.5 % (94-97); ABG PCO2 (T) 53.7 mmHg (32.0-45.0); ABG PO2 (T) 90.5 mmHg (75.0-100.0); ALLEN'S TEST POSITIVE; FCOHb 0.3 % (0.0-3.9); FMetHb 0.4 % (0.0-1.5); FO2Hb 95.8 % (94-97); PATIENT TEMPERATURE 37.6; PEEP 8 cm H2O; RESPIRATORY RATE 12 b/min; TIDAL VOLUME 600 mL; TOTAL HEMOGLOBIN 10.7 G/dl (12.0-16.0)
[2021-08-04 03:06] LABS: ALANINE AMINOTRANSFERASE 24 U/L (12-78); ALBUMIN 1.1 G/DL (3.4-5.0); ALBUMIN/GLOBULIN RATIO 0.3 (1.1-1.5); ALKALINE PHOSPHATASE 103 IU/L (46-116); ANION GAP 0 (8-16); ASPARTATE AMINO TRANSFERASE 25 U/L (10-37); BILIRUBIN,TOTAL 0.4 MG/DL (0.1-1.0); BLOOD UREA NITROGEN 25 MG/DL (7-18); BUN/CREATININE RATIO 32.5 (6.6-38.0); CALCIUM 7.7 MG/DL (8.5-10.1); CHLORIDE 100 MMOL/L (99-107); CREATININE 0.77 MG/DL (0.40-0.90); GLUCOSE 172 MG/DL (70-104); MAGNESIUM 1.7 MG/DL (1.5-2.4); PHOSPHORUS 4.2 MG/DL (2.3-4.5); POTASSIUM 4.6 MMOL/L (3.5-5.1); SODIUM 134 MMOL/L (135-145); TOTAL CARBON DIOXIDE 34.3 MMOL/L (24-32); TOTAL PROTEIN 4.8 G/DL (6.4-8.2); TRIGLYCERIDES 110 MG/DL (20-135); eGFR 76 ML/MIN
[2021-08-04] MEDS: FENTANYL-0.9 % NACL/PF 100 ML IV PRN (04:52)
[2021-08-04] MEDS: NORepinephrine 8mg/ 250ml NS 250 ML IV SCH ×3 (05:02→15:55)
[2021-08-04] MEDS: propofol 1000mg/100ml bottle 100 ML IV SCH (05:02)
[2021-08-04] MEDS: normal saline 1000ml 1,000 ML IV SCH ×2 (05:35→18:05)
[2021-08-04] MEDS: lansoprazole 15mg solutab OGT SCH (07:29)
[2021-08-04] MEDS: gabapentin 300mg capsule OGT SCH ×2 (07:29→20:30)
[2021-08-04] MEDS: heparin, porcine 5000 units/ml vial SQ SCH ×3 (07:29→16:28)
[2021-08-04] MEDS: cefepime 2g/NS 100ml ADVANTAGE 100 ML IV SCH ×2 (07:29)
[2021-08-04] MEDS: K and/or MAG REPLACEMENT MC SCH ×2 (07:31→20:00)
[2021-08-04] MEDS: MULTIVIT-MIN/FERROUS GLUCONATE 9 MG/15 ML LIQUID OGT SCH (08:00)
--- NOTE | 2021-08-04 10:20 | NUR ---
Patient in room CICU 2012. I have received report from Kashif Cuevas and had the opportunity to ask questions and assume patient care. Pt slow to wake, sedation decreased moving toward extubation. Order received.
[2021-08-04] MEDS: dexmedetomidin/NS 400mcg/100ml 100 ML IV SCH ×2 (11:05→20:48)
[2021-08-04] MEDS ORDERED: PCA WASTE DOCUMENTATION MC SCH (14:50)
[2021-08-04] MEDS: HYDROmorph/NS 0.2 mg/ml PCA 100 ML IV SCH ×5 (15:59→23:00)
[2021-08-04] MEDS: psyllium seed 3.4 gm packet OGT SCH (20:30)
[2021-08-04] MEDS: polyethylene glycol 3350 17gm powd pack OGT SCH (20:31)
[2021-08-05] VITALS (23 sets, daily range): BP systolic 93–130; BP diastolic 42–70
[2021-08-05] MEDS: heparin, porcine 5000 units/ml vial SQ SCH ×3 (00:01→18:00)
[2021-08-05] MEDS: NORepinephrine 8mg/ 250ml NS 250 ML IV SCH ×3 (00:11→20:57)
[2021-08-05] MEDS: HYDROmorph/NS 0.2 mg/ml PCA 100 ML IV SCH ×7 (01:00→23:00)
[2021-08-05] MEDS: diltiazem 30mg tablet OGT SCH ×4 (03:33→20:00)
[2021-08-05 03:45] LABS: BASOPHILS % (AUTO) 0.2 % (0-1); EOSINOPHILS # (AUTO) 0.2 X10'3 (0-0.9); EOSINOPHILS % (AUTO) 1.4 % (0-6); HEMATOCRIT 23.6 % (35.0-45.0); HEMOGLOBIN 7.7 g/dl (12.0-16.0); LYMPHOCYTES # (AUTO) 1.1 X10'3 (1.1-4.8); LYMPHOCYTES % (AUTO) 10.5 % (21-51); MEAN CORPUSCULAR HEMOGLOBIN 28.5 PG (27.0-31.0); MEAN CORPUSCULAR HGB CONC 32.5 g/dL (33.0-36.5); MEAN CORPUSCULAR VOLUME 87.8 FL (78-98); MONOCYTES # (AUTO) 0.9 X10'3 (0-0.9); MONOCYTES % (AUTO) 8.6 % (2-12); NEUTROPHILS # (AUTO) 8.5 X10'3 (1.8-7.7); NEUTROPHILS % (AUTO) 79.3 % (42-75); PLATELET COUNT 464 X10'3 (140-440); RED BLOOD COUNT 2.69 X10'6 (4.20-5.60); RED CELL DISTRIBUTION WIDTH 14.7 % (11.5-14.5); WHITE BLOOD COUNT 10.8 X10'3 (4.5-11.0)
[2021-08-05] MEDS: ipratropium/albuterol 3ml nebule NEB SCH ×6 (03:50→23:11)
[2021-08-05 04:07] LABS: ALANINE AMINOTRANSFERASE 21 U/L (12-78); ALBUMIN/GLOBULIN RATIO 0.3 (1.1-1.5); ALKALINE PHOSPHATASE 90 IU/L (46-116); ANION GAP -1 (8-16); ASPARTATE AMINO TRANSFERASE 23 U/L (10-37); BILIRUBIN,TOTAL 0.2 MG/DL (0.1-1.0); BLOOD UREA NITROGEN 13 MG/DL (7-18); BUN/CREATININE RATIO 26.5 (6.6-38.0); CALCIUM 7.5 MG/DL (8.5-10.1); CHLORIDE 105 MMOL/L (99-107); CREATININE 0.49 MG/DL (0.40-0.90); GLUCOSE 133 MG/DL (70-104); MAGNESIUM 1.7 MG/DL (1.5-2.4); PHOSPHORUS 3.1 MG/DL (2.3-4.5); POTASSIUM 4.2 MMOL/L (3.5-5.1); SODIUM 139 MMOL/L (135-145); TOTAL CARBON DIOXIDE 34.6 MMOL/L (24-32); TOTAL PROTEIN 4.8 G/DL (6.4-8.2); eGFR > 90 ML/MIN
[2021-08-05] MEDS: normal saline 1000ml 1,000 ML IV SCH ×2 (07:58→19:05)
[2021-08-05] MEDS: MULTIVIT-MIN/FERROUS GLUCONATE 9 MG/15 ML LIQUID OGT SCH (07:59)
[2021-08-05] MEDS: lansoprazole 15mg solutab OGT SCH (07:59)
[2021-08-05] MEDS: K and/or MAG REPLACEMENT MC SCH ×2 (08:00→20:00)
[2021-08-05] MEDS: nicotine 7mg patch - 24hr TD SCH (08:01)
[2021-08-05] MEDS: CefTRIAXone 2gm/NS 100ml IVPB 100 ML IV SCH (08:02)
[2021-08-05 11:10] LABS: APTT 25 SECONDS (22-32)
[2021-08-05 11:19] LABS: BASOPHILS % (AUTO) 0.4 % (0-1); EOSINOPHILS # (AUTO) 0.1 X10'3 (0-0.9); EOSINOPHILS % (AUTO) 1.4 % (0-6); HEMATOCRIT 22.6 % (35.0-45.0); HEMOGLOBIN 7.7 g/dl (12.0-16.0); LYMPHOCYTES # (AUTO) 0.9 X10'3 (1.1-4.8); LYMPHOCYTES % (AUTO) 9.6 % (21-51); MEAN CORPUSCULAR HEMOGLOBIN 29.6 PG (27.0-31.0); MEAN CORPUSCULAR VOLUME 87.2 FL (78-98); MEAN PLATELET VOLUME 7.8 FL (7.4-10.4); MONOCYTES # (AUTO) 0.6 X10'3 (0-0.9); NEUTROPHILS # (AUTO) 7.3 X10'3 (1.8-7.7); NEUTROPHILS % (AUTO) 81.6 % (42-75); PLATELET COUNT 443 X10'3 (140-440); RED BLOOD COUNT 2.59 X10'6 (4.20-5.60); RED CELL DISTRIBUTION WIDTH 14.5 % (11.5-14.5)
[2021-08-05] MEDS: psyllium seed 3.4 gm packet OGT SCH (20:42)
[2021-08-05] MEDS: polyethylene glycol 3350 17gm powd pack OGT SCH (20:42)
[2021-08-06] VITALS (22 sets, daily range): BP systolic 88–122; BP diastolic 47–72
[2021-08-06] MEDS: heparin, porcine 5000 units/ml vial SQ SCH ×3 (00:29→16:52)
[2021-08-06] MEDS: HYDROmorph/NS 0.2 mg/ml PCA 100 ML IV SCH ×8 (01:00→23:00)
[2021-08-06] MEDS: diltiazem 30mg tablet OGT SCH ×2 (02:59→08:00)
[2021-08-06] MEDS: ipratropium/albuterol 3ml nebule NEB SCH ×6 (03:07→22:59)
[2021-08-06 03:15] LABS: BASOPHILS % (AUTO) 0.4 % (0-1); EOSINOPHILS # (AUTO) 0.1 X10'3 (0-0.9); HEMATOCRIT 22.9 % (35.0-45.0); HEMOGLOBIN 7.6 g/dl (12.0-16.0); LYMPHOCYTES # (AUTO) 0.7 X10'3 (1.1-4.8); LYMPHOCYTES % (AUTO) 10.7 % (21-51); MEAN CORPUSCULAR HEMOGLOBIN 28.9 PG (27.0-31.0); MEAN CORPUSCULAR HGB CONC 32.9 g/dL (33.0-36.5); MEAN CORPUSCULAR VOLUME 87.7 FL (78-98); MEAN PLATELET VOLUME 7.8 FL (7.4-10.4); MONOCYTES # (AUTO) 0.5 X10'3 (0-0.9); MONOCYTES % (AUTO) 7.7 % (2-12); NEUTROPHILS # (AUTO) 5.1 X10'3 (1.8-7.7); NEUTROPHILS % (AUTO) 79.2 % (42-75); PLATELET COUNT 443 X10'3 (140-440); RED BLOOD COUNT 2.62 X10'6 (4.20-5.60); RED CELL DISTRIBUTION WIDTH 14.8 % (11.5-14.5); WHITE BLOOD COUNT 6.4 X10'3 (4.5-11.0)
[2021-08-06 03:25] LABS: ALANINE AMINOTRANSFERASE 29 U/L (12-78); ALBUMIN/GLOBULIN RATIO 0.3 (1.1-1.5); ALKALINE PHOSPHATASE 84 IU/L (46-116); ANION GAP 1 (8-16); ASPARTATE AMINO TRANSFERASE 21 U/L (10-37); BILIRUBIN,TOTAL 0.2 MG/DL (0.1-1.0); BLOOD UREA NITROGEN 11 MG/DL (7-18); BUN/CREATININE RATIO 28.9 (6.6-38.0); CHLORIDE 105 MMOL/L (99-107); CREATININE 0.38 MG/DL (0.40-0.90); GLUCOSE 124 MG/DL (70-104); MAGNESIUM 1.7 MG/DL (1.5-2.4); PHOSPHORUS 2.8 MG/DL (2.3-4.5); POTASSIUM 3.9 MMOL/L (3.5-5.1); SODIUM 142 MMOL/L (135-145); TOTAL CARBON DIOXIDE 35.8 MMOL/L (24-32); eGFR > 90 ML/MIN
[2021-08-06] MEDS: K and/or MAG REPLACEMENT MC SCH ×2 (08:00→20:00)
[2021-08-06] MEDS: CefTRIAXone 2gm/NS 100ml IVPB 100 ML IV SCH (08:30)
[2021-08-06] MEDS: nicotine 7mg patch - 24hr TD SCH (08:56)
[2021-08-06] MEDS: MULTIVIT-MIN/FERROUS GLUCONATE 9 MG/15 ML LIQUID OGT SCH (08:57)
[2021-08-06] MEDS: lansoprazole 15mg solutab OGT SCH (08:57)
[2021-08-06] MEDS: diltiazem 30mg tablet PO SCH ×2 (16:49→21:00)
--- NOTE | 2021-08-06 18:35 | NUR ---
I have received report on a 61 year old female admitted on 07/19/21 for SOB, fever, hypotension and empyema, pt has a hx of COPD who underwent and urgent thoracotomy with decortication on 08/02, pt is alert and oriented, chest tubes x 2 communicating into 1 atrium without air leak, crepitus, or tracheal deviation. Pt has a PRODUCTION SUPERVISOR TRAINEE in place for pain control. assessment complete pt denies needs at this time
[2021-08-06] MEDS: normal saline 1000ml 1,000 ML IV SCH ×2 (21:25→23:50)
[2021-08-06] MEDS: polyethylene glycol 3350 17gm powd pack OGT SCH (21:27)
[2021-08-06] MEDS: psyllium seed 3.4 gm packet OGT SCH (21:27)
[2021-08-07] VITALS (24 sets, daily range): BP systolic 89–134; BP diastolic 50–77
[2021-08-07] MEDS: HYDROmorph/NS 0.2 mg/ml PCA 100 ML IV SCH ×10 (01:37→23:00)
[2021-08-07] MEDS: ipratropium/albuterol 3ml nebule NEB SCH ×6 (02:20→23:36)
[2021-08-07 02:49] LABS: BASOPHILS % (AUTO) 0.4 % (0-1); EOSINOPHILS # (AUTO) 0.1 X10'3 (0-0.9); EOSINOPHILS % (AUTO) 2.3 % (0-6); HEMATOCRIT 22.2 % (35.0-45.0); HEMOGLOBIN 7.2 g/dl (12.0-16.0); LYMPHOCYTES # (AUTO) 0.8 X10'3 (1.1-4.8); LYMPHOCYTES % (AUTO) 17.5 % (21-51); MEAN CORPUSCULAR HEMOGLOBIN 28.3 PG (27.0-31.0); MEAN CORPUSCULAR HGB CONC 32.5 g/dL (33.0-36.5); MEAN CORPUSCULAR VOLUME 87.1 FL (78-98); MEAN PLATELET VOLUME 7.2 FL (7.4-10.4); MONOCYTES # (AUTO) 0.4 X10'3 (0-0.9); MONOCYTES % (AUTO) 8.5 % (2-12); NEUTROPHILS # (AUTO) 3.1 X10'3 (1.8-7.7); NEUTROPHILS % (AUTO) 71.3 % (42-75); PLATELET COUNT 382 X10'3 (140-440); RED BLOOD COUNT 2.55 X10'6 (4.20-5.60); RED CELL DISTRIBUTION WIDTH 14.7 % (11.5-14.5); WHITE BLOOD COUNT 4.3 X10'3 (4.5-11.0)
[2021-08-07 03:09] LABS: ALANINE AMINOTRANSFERASE 21 U/L (12-78); ALBUMIN/GLOBULIN RATIO 0.3 (1.1-1.5); ALKALINE PHOSPHATASE 88 IU/L (46-116); ANION GAP 0 (8-16); ASPARTATE AMINO TRANSFERASE 20 U/L (10-37); BILIRUBIN,TOTAL 0.2 MG/DL (0.1-1.0); BLOOD UREA NITROGEN 12 MG/DL (7-18); BUN/CREATININE RATIO 31.6 (6.6-38.0); CALCIUM 8.3 MG/DL (8.5-10.1); CHLORIDE 105 MMOL/L (99-107); CREATININE 0.38 MG/DL (0.40-0.90); GLUCOSE 93 MG/DL (70-104); MAGNESIUM 1.8 MG/DL (1.5-2.4); PHOSPHORUS 3.1 MG/DL (2.3-4.5); POTASSIUM 4.1 MMOL/L (3.5-5.1); SODIUM 141 MMOL/L (135-145); TOTAL CARBON DIOXIDE 35.9 MMOL/L (24-32); TOTAL PROTEIN 4.8 G/DL (6.4-8.2); eGFR > 90 ML/MIN
[2021-08-07] MEDS: heparin, porcine 5000 units/ml vial SQ SCH ×4 (03:30→23:20)
[2021-08-07] MEDS: NORepinephrine 8mg/ 250ml NS 250 ML IV SCH ×2 (06:09→19:06)
--- NOTE | 2021-08-07 06:14 | NUR ---
report given to rec rn plan of care reviewed
[2021-08-07] MEDS: K and/or MAG REPLACEMENT MC SCH ×2 (08:00→20:02)
[2021-08-07] MEDS: diltiazem 30mg tablet PO SCH ×3 (08:00→20:11)
[2021-08-07] MEDS: MULTIVIT-MIN/FERROUS GLUCONATE 9 MG/15 ML LIQUID OGT SCH (09:00)
[2021-08-07] MEDS: CefTRIAXone 2gm/NS 100ml IVPB 100 ML IV SCH (09:00)
[2021-08-07] MEDS: lansoprazole 15mg solutab OGT SCH (09:00)
[2021-08-07] MEDS: nicotine 7mg patch - 24hr TD SCH (09:02)
--- NOTE | 2021-08-07 11:57 | NUR ---
F/u 08/07: Pt extubated 08/04 receiving TF at goal via NG till 08/06 per EMR. NG now removed PO 100% first full liquids meal this AM advanced to regular diet now per EMR. LBM 08/02 though only small BM's this admit 19 days receiving routine metamucil HS and miralax HS; NORMA d/w who is now aware. Will monitor for further PO acceptance and nutrition intervention needs given pt historically poor intake prior to OR this admit. Recommendations: 1. Continue regular diet per MD; encourage PO 2. monitor for PO acceptance and ONS needs post-op 3. routine bowel regimen; only small BM's since admit 18 days per EMR 4. monitor PO trends and need for prior food preferences post-op: Sandwiches for lunch entrees; alternate yogurt and cottage cheese WL; crackers TID; mayonnaise WS 5. weekly wts Addendum: 08/07/21 at [address] Amended: Links added.
[2021-08-07] MEDS ORDERED: IOHEXOL 300 MG/ML 30ML INFUS..BTL IV ONE (16:11)
[2021-08-07] MEDS: psyllium seed 3.4 gm packet OGT SCH (20:11)
[2021-08-07] MEDS: polyethylene glycol 3350 17gm powd pack OGT SCH (20:11)
[2021-08-07] MEDS: gabapentin 300mg capsule PO SCH (20:11)
[2021-08-08] VITALS (24 sets, daily range): BP systolic 92–106; BP diastolic 50–66
[2021-08-08] MEDS: HYDROmorph/NS 0.2 mg/ml PCA 100 ML IV SCH ×12 (01:00→23:00)
[2021-08-08 02:31] LABS: BASOPHILS % (AUTO) 0.4 % (0-1); EOSINOPHILS # (AUTO) 0.1 X10'3 (0-0.9); EOSINOPHILS % (AUTO) 2.7 % (0-6); HEMATOCRIT 23.8 % (35.0-45.0); HEMOGLOBIN 7.7 g/dl (12.0-16.0); LYMPHOCYTES # (AUTO) 0.5 X10'3 (1.1-4.8); MEAN CORPUSCULAR HEMOGLOBIN 28.4 PG (27.0-31.0); MEAN CORPUSCULAR HGB CONC 32.5 g/dL (33.0-36.5); MEAN CORPUSCULAR VOLUME 87.1 FL (78-98); MEAN PLATELET VOLUME 7.1 FL (7.4-10.4); MONOCYTES # (AUTO) 0.4 X10'3 (0-0.9); MONOCYTES % (AUTO) 10.2 % (2-12); NEUTROPHILS # (AUTO) 2.7 X10'3 (1.8-7.7); NEUTROPHILS % (AUTO) 72.7 % (42-75); PLATELET COUNT 377 X10'3 (140-440); RED BLOOD COUNT 2.73 X10'6 (4.20-5.60); RED CELL DISTRIBUTION WIDTH 14.4 % (11.5-14.5); WHITE BLOOD COUNT 3.7 X10'3 (4.5-11.0)
[2021-08-08 02:40] LABS: ALANINE AMINOTRANSFERASE 23 U/L (12-78); ALBUMIN 1.1 G/DL (3.4-5.0); ALBUMIN/GLOBULIN RATIO 0.3 (1.1-1.5); ALKALINE PHOSPHATASE 94 IU/L (46-116); ANION GAP -2 (8-16); ASPARTATE AMINO TRANSFERASE 19 U/L (10-37); BILIRUBIN,TOTAL 0.2 MG/DL (0.1-1.0); BLOOD UREA NITROGEN 10 MG/DL (7-18); BUN/CREATININE RATIO 23.8 (6.6-38.0); CALCIUM 8.5 MG/DL (8.5-10.1); CHLORIDE 104 MMOL/L (99-107); CREATININE 0.42 MG/DL (0.40-0.90); GLUCOSE 96 MG/DL (70-104); MAGNESIUM 1.9 MG/DL (1.5-2.4); PHOSPHORUS 3.7 MG/DL (2.3-4.5); POTASSIUM 4.2 MMOL/L (3.5-5.1); SODIUM 141 MMOL/L (135-145); TOTAL CARBON DIOXIDE 39.2 MMOL/L (24-32); TOTAL PROTEIN 5.2 G/DL (6.4-8.2); eGFR > 90 ML/MIN
[2021-08-08] MEDS: ipratropium/albuterol 3ml nebule NEB SCH ×6 (02:53→23:02)
[2021-08-08] MEDS: CefTRIAXone 2gm/NS 100ml IVPB 100 ML IV SCH (07:28)
[2021-08-08] MEDS: diltiazem 30mg tablet PO SCH ×3 (07:40→20:00)
[2021-08-08] MEDS: MULTIVIT-MIN/FERROUS GLUCONATE 9 MG/15 ML LIQUID OGT SCH (07:40)
[2021-08-08] MEDS: heparin, porcine 5000 units/ml vial SQ SCH ×2 (07:40→15:46)
[2021-08-08] MEDS: nicotine 7mg patch - 24hr TD SCH (07:41)
[2021-08-08] MEDS: gabapentin 300mg capsule PO SCH ×3 (07:41→20:00)
[2021-08-08] MEDS: lansoprazole 15mg solutab OGT SCH (07:41)
[2021-08-08] MEDS: K and/or MAG REPLACEMENT MC SCH ×2 (07:51→20:00)
[2021-08-08] MEDS: NORepinephrine 8mg/ 250ml NS 250 ML IV SCH ×2 (08:03→21:00)
[2021-08-08] MEDS ORDERED: amiodarone 150mg/dext, iso-os 100 ML IV ONE ×2 (13:38→13:50)
[2021-08-08] MEDS ORDERED: ringers solution, lacted 1,000 ML IV ONE (13:50)
[2021-08-08] MEDS: amiodarone/D5 360MG/200ML BAG 200 ML IV SCH ×2 (13:52→19:49)
--- NOTE | 2021-08-08 18:21 | NUR ---
Patient in room CICU 2013. I have received report from ANU Livingston and had the opportunity to ask questions and assume patient care. Patient resting comfortably, just finished dinner. I will continue to monitor.
[2021-08-08] MEDS: psyllium seed 3.4 gm packet OGT SCH (20:00)
[2021-08-08] MEDS: polyethylene glycol 3350 17gm powd pack OGT SCH (20:00)
[2021-08-09] VITALS (19 sets, daily range): BP systolic 89–121; BP diastolic 50–73
[2021-08-09] MEDS: heparin, porcine 5000 units/ml vial SQ SCH ×3 (00:05→15:58)
[2021-08-09] MEDS: HYDROmorph/NS 0.2 mg/ml PCA 100 ML IV SCH ×8 (01:00→14:57)
[2021-08-09] MEDS: amiodarone/D5 360MG/200ML BAG 200 ML IV SCH ×3 (01:58→14:06)
[2021-08-09 02:37] LABS: BASOPHILS % (AUTO) 0.3 % (0-1); EOSINOPHILS # (AUTO) 0.1 X10'3 (0-0.9); EOSINOPHILS % (AUTO) 2.9 % (0-6); HEMATOCRIT 23.2 % (35.0-45.0); HEMOGLOBIN 7.5 g/dl (12.0-16.0); LYMPHOCYTES # (AUTO) 0.7 X10'3 (1.1-4.8); LYMPHOCYTES % (AUTO) 17.7 % (21-51); MEAN CORPUSCULAR HEMOGLOBIN 28.6 PG (27.0-31.0); MEAN CORPUSCULAR HGB CONC 32.3 g/dL (33.0-36.5); MEAN CORPUSCULAR VOLUME 88.5 FL (78-98); MONOCYTES # (AUTO) 0.4 X10'3 (0-0.9); MONOCYTES % (AUTO) 11.6 % (2-12); NEUTROPHILS # (AUTO) 2.6 X10'3 (1.8-7.7); NEUTROPHILS % (AUTO) 67.5 % (42-75); PLATELET COUNT 314 X10'3 (140-440); RED BLOOD COUNT 2.63 X10'6 (4.20-5.60); RED CELL DISTRIBUTION WIDTH 14.9 % (11.5-14.5); WHITE BLOOD COUNT 3.8 X10'3 (4.5-11.0)
[2021-08-09 02:47] LABS: ALANINE AMINOTRANSFERASE 22 U/L (12-78); ALBUMIN 1.1 G/DL (3.4-5.0); ALBUMIN/GLOBULIN RATIO 0.3 (1.1-1.5); ALKALINE PHOSPHATASE 92 IU/L (46-116); ANION GAP 0 (8-16); ASPARTATE AMINO TRANSFERASE 16 U/L (10-37); BILIRUBIN,TOTAL 0.1 MG/DL (0.1-1.0); BLOOD UREA NITROGEN 9 MG/DL (7-18); BUN/CREATININE RATIO 18.8 (6.6-38.0); CALCIUM 7.7 MG/DL (8.5-10.1); CHLORIDE 105 MMOL/L (99-107); CREATININE 0.48 MG/DL (0.40-0.90); GLUCOSE 114 MG/DL (70-104); MAGNESIUM 1.8 MG/DL (1.5-2.4); PHOSPHORUS 4.1 MG/DL (2.3-4.5); SODIUM 143 MMOL/L (135-145); TOTAL CARBON DIOXIDE 37.7 MMOL/L (24-32); eGFR > 90 ML/MIN
[2021-08-09] MEDS: ipratropium/albuterol 3ml nebule NEB SCH ×6 (03:03→23:15)
[2021-08-09] MEDS: CefTRIAXone 2gm/NS 100ml IVPB 100 ML IV SCH (07:31)
[2021-08-09] MEDS: lansoprazole 15mg solutab OGT SCH (07:44)
[2021-08-09] MEDS: gabapentin 300mg capsule PO SCH ×3 (07:44→20:05)
[2021-08-09] MEDS: MULTIVIT-MIN/FERROUS GLUCONATE 9 MG/15 ML LIQUID OGT SCH (07:44)
[2021-08-09] MEDS: nicotine 7mg patch - 24hr TD SCH (07:45)
[2021-08-09] MEDS: diltiazem 30mg tablet PO SCH ×3 (07:45→20:06)
[2021-08-09] MEDS: K and/or MAG REPLACEMENT MC SCH ×2 (07:54→19:48)
[2021-08-09] MEDS: NORepinephrine 8mg/ 250ml NS 250 ML IV SCH (09:57)
--- NOTE | 2021-08-09 17:51 | NUR ---
Report given to Alanis BRENNAN
--- NOTE | 2021-08-09 17:55 | NUR ---
Patient transferred to [facility] with all belongings. Vital signs stable upon transfer
[2021-08-09] MEDS ORDERED: amiodarone/D5 360MG/200ML BAG 200 ML IV SCH (18:06)
--- NOTE | 2021-08-09 18:29 | NUR ---
Jared given to Ilene. pt transferred with CADD pump still running...order to Discontinue was written while pt was still in ICU...Oncoming RN to DC and Waste with Charge.
[2021-08-09] MEDS: polyethylene glycol 3350 17gm powd pack OGT SCH (20:05)
[2021-08-09] MEDS: psyllium seed 3.4 gm packet OGT SCH (20:47)
[2021-08-10] MEDS: heparin, porcine 5000 units/ml vial SQ SCH ×3 (01:16→16:00)
[2021-08-10 02:00] VITALS: BP 105/58
[2021-08-10] MEDS: ipratropium/albuterol 3ml nebule NEB SCH ×6 (03:02→23:09)
[2021-08-10 06:00] VITALS: BP 105/58
[2021-08-10] MEDS: K and/or MAG REPLACEMENT MC SCH ×2 (08:00→20:00)
[2021-08-10] MEDS: lansoprazole 15mg solutab OGT SCH (10:08)
[2021-08-10] MEDS: multivitamins, therapeutics tablet PO SCH (10:08)
[2021-08-10] MEDS: nicotine 7mg patch - 24hr TD SCH (10:08)
[2021-08-10] MEDS: gabapentin 300mg capsule PO SCH ×3 (10:08→20:03)
[2021-08-10] MEDS: diltiazem 30mg tablet PO SCH ×3 (10:08→20:01)
[2021-08-10] MEDS: HYDROcodone/acetaminophen 7.5MG/325MG per 15ml UD CUP OGT PRN ×2 (10:43→20:01)
--- NOTE | 2021-08-10 10:59 | NUR ---
Jesús MCKEON. Pt Venkatesh has been SR since transfer to [facility] yesterday. She is still on a Amio gtt, can we change this to PO.. thank you Alanis BRENNAN U [phone] Addendum: 08/10/21 at 1130 by Alanis Rachel RN 2nd page. Pt continues on IV Amio from ICU transfer has been in SR on [facility]. Alanis BRENNAN [facility] ext [phone]
[2021-08-10 11:00] VITALS: BP 121/71
[2021-08-10] MEDS: CefTRIAXone 2gm/NS 100ml IVPB 100 ML IV SCH (12:48)
[2021-08-10] MEDS: amiodarone 200mg tablet PO SCH (12:49)
[2021-08-10 15:00] VITALS: BP 88/50
[2021-08-10 18:00] VITALS: BP 98/58
[2021-08-10] MEDS: polyethylene glycol 3350 17gm powd pack OGT SCH (20:02)
[2021-08-10] MEDS: psyllium seed 3.4 gm packet OGT SCH (20:02)
[2021-08-10 22:00] VITALS: BP 99/51
[2021-08-11] MEDS: heparin, porcine 5000 units/ml vial SQ SCH ×3 (00:55→16:00)
[2021-08-11 02:00] VITALS: BP 98/64
[2021-08-11] MEDS: ipratropium/albuterol 3ml nebule NEB SCH ×4 (03:11→16:23)
[2021-08-11 06:00] VITALS: BP 113/68
[2021-08-11] MEDS: K and/or MAG REPLACEMENT MC SCH (08:00)
[2021-08-11] MEDS ORDERED: cefpodoxime proxetil 100mg tablet PO SCH (08:30)
[2021-08-11] MEDS: amiodarone 200mg tablet PO SCH (09:12)
[2021-08-11] MEDS: diltiazem 30mg tablet PO SCH (09:12)
[2021-08-11] MEDS: multivitamins, therapeutics tablet PO SCH (09:13)
[2021-08-11] MEDS: lansoprazole 15mg solutab OGT SCH (09:13)
[2021-08-11] MEDS: gabapentin 300mg capsule PO SCH ×2 (09:13→14:49)
[2021-08-11] MEDS: nicotine 7mg patch - 24hr TD SCH (09:14)
[2021-08-11 11:00] VITALS: BP 104/61
--- NOTE | 2021-08-11 11:09 | NUR ---
Reassessment: Pt continues on regular diet with slightly fluctuating PO intake, currently averaging 58% since 08/08 not meeting estimated nutrient needs. D/w dietary to resume previously obtained food preferences, see below. If PO intake does not improve pt would benefit from ONS. LBM 08/10. Pt continues receiving routine bowel care. Will continue to follow and monitor need for further nutrition intervention. Recommendations: 1. Continue regular diet per MD; encourage PO intake 2. Monitor need for ONS/additional protein 3. [place] food preferences: Sandwiches for lunch entrees; alternate yogurt and cottage cheese WL; crackers TID; mayonnaise WS 4. Routine bowel care; previously only small BM's x 18 days per EMR 5. Weekly scaled weights Addendum: 08/11/21 at [address] Amended: Links added.
[2021-08-11] MEDS ORDERED: MULT-25 PO (11:12)
[2021-08-11] MEDS ORDERED: CEFP100T7 PO (11:12)
[2021-08-11] MEDS ORDERED: LANS15TA5 OGT (11:12)
[2021-08-11] MEDS ORDERED: IPRA3AMP9 NEB (11:12)
--- NOTE | 2021-08-11 11:40 | NUR ---
found patient sitting in chair on RA, saturations were 82% on tx. Placed back on 1 LPM.
[2021-08-11 11:57] LABS: BASOPHILS % (AUTO) 0.3 % (0-1); EOSINOPHILS # (AUTO) 0.2 X10'3 (0-0.9); EOSINOPHILS % (AUTO) 4.3 % (0-6); HEMATOCRIT 27.9 % (35.0-45.0); HEMOGLOBIN 9.1 g/dl (12.0-16.0); LYMPHOCYTES # (AUTO) 0.7 X10'3 (1.1-4.8); LYMPHOCYTES % (AUTO) 17.1 % (21-51); MEAN CORPUSCULAR HEMOGLOBIN 28.6 PG (27.0-31.0); MEAN CORPUSCULAR HGB CONC 32.6 g/dL (33.0-36.5); MEAN CORPUSCULAR VOLUME 87.8 FL (78-98); MEAN PLATELET VOLUME 7.1 FL (7.4-10.4); MONOCYTES # (AUTO) 0.4 X10'3 (0-0.9); MONOCYTES % (AUTO) 10.3 % (2-12); NEUTROPHILS # (AUTO) 2.9 X10'3 (1.8-7.7); PLATELET COUNT 361 X10'3 (140-440); RED BLOOD COUNT 3.18 X10'6 (4.20-5.60); RED CELL DISTRIBUTION WIDTH 15.2 % (11.5-14.5); WHITE BLOOD COUNT 4.3 X10'3 (4.5-11.0)
[2021-08-11 12:02] LABS: ALBUMIN 1.5 G/DL (3.4-5.0); ANION GAP 2 (8-16); BLOOD UREA NITROGEN 12 MG/DL (7-18); BUN/CREATININE RATIO 21.1 (6.6-38.0); CALCIUM 8.2 MG/DL (8.5-10.1); CHLORIDE 102 MMOL/L (99-107); CREATININE 0.57 MG/DL (0.40-0.90); GLUCOSE 109 MG/DL (70-104); POTASSIUM 4.2 MMOL/L (3.5-5.1); SODIUM 140 MMOL/L (135-145); TOTAL CARBON DIOXIDE 36.2 MMOL/L (24-32); eGFR > 90 ML/MIN
--- NOTE | 2021-08-11 13:14 | NUR ---
O2 Sat at rest on room air:_91__% If O2 Sat did not drop below 89% on room air,ambulate patient on room air. O2 Sat while ambulating on room air:_79__% Recovery O2 Sat while ambulating on __NC_LPM:_2__% No further documentation is necessary.
--- NOTE | 2021-08-11 13:22 | NUR ---
O2 Sat at rest on room air:_91__% If O2 Sat did not drop below 89% on room air,ambulate patient on room air. O2 Sat while ambulating on room air:_79__% Recovery O2 Sat while ambulating on __2_LPM:_93__% No further documentation is necessary.
[2021-08-11] MEDS ORDERED: diltiazem CD 120mg capsule (once-daily) PO SCH (14:50)
[2021-08-11 15:00] VITALS: BP 107/64
[2021-08-11] MEDS ORDERED: APIX5TAB3 PO (15:00)
[2021-08-11] MEDS ORDERED: AMIO200T67 PO (15:00)
[2021-08-11] MEDS ORDERED: CARCD120C PO (15:00)
--- NOTE | 2021-08-11 16:33 | NUR ---
patient refused heparin d/t patient going home soon
--- NOTE | 2021-08-11 19:23 | NUR ---
All d/c ppwk was printed. Was not reviewed with patient yet. While I was in a code blue on a different floor, patient left without d/c ppwk reviewed nor signed. There are many new RX's that I had verbalized already to the patient but not in detail. Came back to floor around 1810 and she had left at 1745. Gave all d/c ppwk to TIFFANY Kuhn (noc shift). She will contact patient to review d/c ppwk. Tele box had been returned to [employer].
== END 2021-08-11 17:48 | disposition home health service (06) | DRG 853 ==
LOC: ER 10:10 → ED HOLD 12:36 → PCU 3S 07-20 07:18 → CICU 2S 08-02 23:33 → PCU 3S 08-09 17:55
PROVIDERS: ADMIT Family Medicine; ATTEND Family Medicine
PROC: 5A09357 Assistance with Respiratory Ventilation, Less than 24 Consecutive Hours, Continuous Positive Airway Pressure (ICD-10-PCS; 2021-07-19)
PROC: 5A09357 Assistance with Respiratory Ventilation, Less than 24 Consecutive Hours, Continuous Positive Airway Pressure (ICD-10-PCS; 2021-07-20)
PROC: 5A09357 Assistance with Respiratory Ventilation, Less than 24 Consecutive Hours, Continuous Positive Airway Pressure (ICD-10-PCS; 2021-07-21)
PROC: 5A0935A Assistance with Respiratory Ventilation, Less than 24 Consecutive Hours, High Flow/Velocity Cannula (ICD-10-PCS; 2021-07-22)
PROC: B3201ZZ Computerized Tomography (CT Scan) of Thoracic Aorta using Low Osmolar Contrast (ICD-10-PCS; 2021-07-23)
PROC: B32S1ZZ Computerized Tomography (CT Scan) of Right Pulmonary Artery using Low Osmolar Contrast (ICD-10-PCS; 2021-07-23)
PROC: B32T1ZZ Computerized Tomography (CT Scan) of Left Pulmonary Artery using Low Osmolar Contrast (ICD-10-PCS; 2021-07-23)
PROC: 5A0935A Assistance with Respiratory Ventilation, Less than 24 Consecutive Hours, High Flow/Velocity Cannula (ICD-10-PCS; 2021-07-23)
PROC: 5A0935A Assistance with Respiratory Ventilation, Less than 24 Consecutive Hours, High Flow/Velocity Cannula (ICD-10-PCS; 2021-07-24)
PROC: 0W9930Z Drainage of Right Pleural Cavity with Drainage Device, Percutaneous Approach (ICD-10-PCS; 2021-07-25)
PROC: 5A0935A Assistance with Respiratory Ventilation, Less than 24 Consecutive Hours, High Flow/Velocity Cannula (ICD-10-PCS; 2021-07-25)
PROC: 0W9930Z Drainage of Right Pleural Cavity with Drainage Device, Percutaneous Approach (ICD-10-PCS; 2021-07-26)
PROC: 5A0935A Assistance with Respiratory Ventilation, Less than 24 Consecutive Hours, High Flow/Velocity Cannula (ICD-10-PCS; 2021-07-26)
PROC: 5A0935A Assistance with Respiratory Ventilation, Less than 24 Consecutive Hours, High Flow/Velocity Cannula (ICD-10-PCS; 2021-07-27)
PROC: 5A0935A Assistance with Respiratory Ventilation, Less than 24 Consecutive Hours, High Flow/Velocity Cannula (ICD-10-PCS; 2021-07-28)
PROC: 5A0935A Assistance with Respiratory Ventilation, Less than 24 Consecutive Hours, High Flow/Velocity Cannula (ICD-10-PCS; 2021-07-29)
PROC: 5A0935A Assistance with Respiratory Ventilation, Less than 24 Consecutive Hours, High Flow/Velocity Cannula (ICD-10-PCS; 2021-07-30)
PROC: 0W9930Z Drainage of Right Pleural Cavity with Drainage Device, Percutaneous Approach (ICD-10-PCS; 2021-07-31)
PROC: 5A0935A Assistance with Respiratory Ventilation, Less than 24 Consecutive Hours, High Flow/Velocity Cannula (ICD-10-PCS; 2021-07-31)
PROC: 5A0935A Assistance with Respiratory Ventilation, Less than 24 Consecutive Hours, High Flow/Velocity Cannula (ICD-10-PCS; 2021-08-01)
PROC: 0BNC0ZZ Release Right Upper Lung Lobe, Open Approach (ICD-10-PCS; 2021-08-02)
PROC: 0B5N0ZZ Destruction of Right Pleura, Open Approach (ICD-10-PCS; 2021-08-02)
PROC: 0W9900Z Drainage of Right Pleural Cavity with Drainage Device, Open Approach (ICD-10-PCS; 2021-08-02)
PROC: 5A0935A Assistance with Respiratory Ventilation, Less than 24 Consecutive Hours, High Flow/Velocity Cannula (ICD-10-PCS; 2021-08-02)
PROC: 3E0L3GC Introduction of Other Therapeutic Substance into Pleural Cavity, Percutaneous Approach (ICD-10-PCS; 2021-08-02)
PROC: 0BTD0ZZ Resection of Right Middle Lung Lobe, Open Approach (ICD-10-PCS; principal; 2021-08-02 22:52)
PROC: BW241ZZ Computerized Tomography (CT Scan) of Chest and Abdomen using Low Osmolar Contrast (ICD-10-PCS; 2021-08-07)
DX: A40.9 Streptococcal sepsis, unspecified (principal); J85.0 Gangrene and necrosis of lung; J85.1 Abscess of lung with pneumonia; J96.01 Acute respiratory failure with hypoxia; J96.02 Acute respiratory failure with hypercapnia; N17.0 Acute kidney failure with tubular necrosis; J91.8 Pleural effusion in other conditions classified elsewhere; J44.1 Chronic obstructive pulmonary disease with (acute) exacerbation; E87.1 Hypo-osmolality and hyponatremia; J44.0 Chronic obstructive pulmonary disease with (acute) lower respiratory infection; R57.9 Shock, unspecified; J93.82 Other air leak; J93.9 Pneumothorax, unspecified; E44.0 Moderate protein-calorie malnutrition; T85.618A Breakdown (mechanical) of other specified internal prosthetic devices, implants and grafts, initial encounter; Z20.822 Contact with and (suspected) exposure to COVID-19; N18.9 Chronic kidney disease, unspecified; R65.20 Severe sepsis without septic shock; Y83.8 Other surgical procedures as the cause of abnormal reaction of the patient, or of later complication, without mention of misadventure at the time of the procedure; Y92.230 Patient room in hospital as the place of occurrence of the external cause; I12.9 Hypertensive chronic kidney disease with stage 1 through stage 4 chronic kidney disease, or unspecified chronic kidney disease; E87.5 Hyperkalemia; E66.9 Obesity, unspecified; K21.9 Gastro-esophageal reflux disease without esophagitis; R19.7 Diarrhea, unspecified; D63.8 Anemia in other chronic diseases classified elsewhere; F17.210 Nicotine dependence, cigarettes, uncomplicated; I48.91 Unspecified atrial fibrillation; I73.9 Peripheral vascular disease, unspecified; K59.00 Constipation, unspecified; Z87.11 Personal history of peptic ulcer disease; Z90.711 Acquired absence of uterus with remaining cervical stump; Z68.37 Body mass index [BMI] 37.0-37.9, adult; Z71.6 Tobacco abuse counseling; Z79.899 Other long term (current) drug therapy; R11.0 Nausea
CPT/HCPCS: 32557; 93306; 96361; 96365; 99285; Z7506; Z7508; 36415; 36600; 70450; 71045; 71046; 71250; 71260; 71275; 74018; 76604; 77012; 80048; 80053; 80061; 81001; 82570; 82803; 82945; 82948; 83605; 83615; 83735; 83880; 83935; 83986; 84100; 84133; 84134; 84145; 84156; 84157; 84300; 84443; 84478; 84484; 85007; 85018; 85025; 85379; 85610; 85730; 86703; 86885; 86900; 86901; 87040; 87070; 87075; 87077; 87081; 87102; 87186; 87207; 87502; 87503; 87635; 89051; 93005; 93922; 93925; 94002; 94003; 94640; 94660; 94668; 94760; 97110; 97116; 97162; 97530; A4215; A4618; A6258; A6449; A7000; A7048; C1758; C9250; C9803; G0378; J0282; J0456; J0692; J0696; J1170; J1644; J1940; J1956; J2250; J2270; J2405; J2704; J2930; J2997; J3010; J3370; J3490; J7030; J7040; J7120; J7512; J8597; P9045; Q9967